=== PATIENT | female | born 1985 | race Caucasian/White ===

== ENCOUNTER → 2018-02-25 | Outpatient (CLI) | payer BC ==
[2018-02-25 18:26] LABS: Basophils % (A) 0 %; Eosinophils # (A) 0.2 k/uL (0-0.7); Eosinophils % (A) 2 %; HCT 40.9 % (34.0-46.0); HGB 12.7 gm/dL (11.4-16.0); Lymphocytes # (A) 1.9 k/uL (1.0-4.8); Lymphocytes % (A) 21 %; MCH 25.5 pg (25.0-35.0); MCHC 31.1 g/dL (31.0-37.0); MCV 82.1 fL (80.0-100.0); Mean Platelet Volume 8.1; Monocytes # (A) 0.4 k/uL (0-1.0); Monocytes % (A) 4 %; Neutrophils # (A) 6.3 k/uL (1.3-7.7); Neutrophils % (A) 70 %; Platelet Count 332 k/uL (150-450); RBC 4.98 m/uL (3.80-5.40); RDW 13.6 % (11.5-15.5); WBC 8.9 k/uL (3.8-10.6)
[2018-02-25 18:40] LABS: ALT 22 U/L (9-52); AST 25 U/L (14-36); Albumin 4.5 g/dL (3.5-5.0); Alkaline Phosphatase 51 U/L (38-126); Amylase 45 U/L (30-110); Anion Gap 15 mmol/L; Blood Urea Nitrogen 12 mg/dL (7-17); Calcium 9.7 mg/dL (8.4-10.2); Carbon Dioxide 27 mmol/L (22-30); Chloride 104 mmol/L (98-107); Cholesterol 157 mg/dL (<200); Glucose 82 mg/dL (74-99); HDL Cholesterol 31 mg/dL (40-60); LDL Cholesterol,Calculated 90 mg/dL (0-99); Lipase 55 U/L (23-300); Potassium 4.2 mmol/L (3.5-5.1); Sodium 146 mmol/L (137-145); Total Bilirubin 0.4 mg/dL (0.2-1.3); Total Protein 7.7 g/dL (6.3-8.2); Triglycerides 179 mg/dL (<150)
[2018-02-26 01:30] LABS: Iron Saturation 20.64 (12.00-45.00)
[2018-02-26 01:39] LABS: Vitamin D 25 Hydroxy 15.8 ng/mL (30.0-100.0)
== END | disposition home or self-care (01) ==
LOC: MMGSC 11:18
PROVIDERS: ATTEND Family Medicine
DX: Z00.00 Encounter for general adult medical examination without abnormal findings (principal); R53.83 Other fatigue; D50.9 Iron deficiency anemia, unspecified; R10.13 Epigastric pain
CPT/HCPCS: 36415; 80053; 80061; 82150; 82306; 82607; 82728; 83540; 83550; 83690; 84443; 85025

== ENCOUNTER 2021-01-21 01:49 | Inpatient (IN) | payer BC ==
[2021-01-21] MEDS ORDERED: LIDOCAINE 0.5% (PF) 5 MG/ML (50 ML SDV) SQ PRN (02:23)
[2021-01-21] MEDS ORDERED: CARBOPROST TROMETHAMINE 250 MCG/ML 1 ML AMP IM PRN (02:23)
[2021-01-21] MEDS ORDERED: METHYLERGONOVINE 0.2 MG/ML 1 ML AMP IM PRN (02:23)
[2021-01-21] MEDS ORDERED: TERBUTALINE 1 MG/ML VIAL SQ PRN (02:23)
[2021-01-21] MEDS ORDERED: OXYTOCIN 10 UNIT/ML 1 ML VIAL IM PRN (02:23)
[2021-01-21] MEDS: LACTATED RINGERS 1,000 ML IV SCH ×3 (03:03→21:08)
[2021-01-21 03:04] LABS: Glucose,Whole Blood 108 mg/dL (75-99)
[2021-01-21 03:29] LABS: Basophils % (A) 0 %; Eosinophils % (A) 0 %; HCT 33.5 % (34.0-46.0); HGB 11.1 gm/dL (11.4-16.0); Lymphocytes # (A) 0.9 k/uL (1.0-4.8); Lymphocytes % (A) 10 %; MCH 26.1 pg (25.0-35.0); MCHC 33.3 g/dL (31.0-37.0); MCV 78.4 fL (80.0-100.0); Mean Platelet Volume 8.2; Monocytes # (A) 0.5 k/uL (0-1.0); Monocytes % (A) 6 %; Neutrophils # (A) 6.8 k/uL (1.3-7.7); Neutrophils % (A) 83 %; Platelet Count 201 k/uL (150-450); RBC 4.27 m/uL (3.80-5.40); RDW 15.3 % (11.5-15.5); WBC 8.2 k/uL (3.8-10.6)
[2021-01-21] MEDS ORDERED: OXYTOCIN 30 UNITS/500 ML NS 30 UNIT in SALINE 1 500ML.BAG IV SCH (05:00)
--- NOTE | 2021-01-21 07:24 | P.HPOB ---
History of Present Illness H&P Date: 01/21/21 Chief Complaint: My water broke at 12:30 AM, positive covid testing yesterday. This is a 35-year-old white female 3 para 2001 EDC 01/22/2021 at 39-6/7 weeks' gestation. Patient presented to labor and delivery with a history of her water spontaneously breaking at 12:30 in the morning, clear fluid. Her history is significant for positive rapid screen covid testing positive yesterday. She has mild shortness of breath but otherwise appears asymptomatic. Fetus is been active throughout the past medical history is significant for seasonal ALLERGIES and benign heart murmur. Past surgical history dental surgery only. Current medications baby aspirin daily, vitamin daily. ALLERGIES none known. Family history significant for MS, diabetes, arthritis, thyroid issues, ALS. Reproductive history significant for vaginal deliveries 2, unremarkable. Social history patient is a schoolteacher loss dry for, she is , never been a smoker, denies alcohol or drug use. history is significant for blood type A+, rubella status immune. Pap smear, gonorrhea and chlamydia cultures, group B strep cultures hepatitis B surface antigen, HIV testing all negative. Three-hour GTT consistent with gestational diabetes. On exam patient is 5 foot 9 inches, 250 pounds, blood pressure 123/67 on admission, pulse ox 93%, pulse 114, respirations 18, temperature 99.0. General physical exam is within normal limits. Chest is clear in all perea. Extremities reveal no edema. Cervix is 3 cm dilated, 80% effaced, -2 station, vertex presentation. Clear fluid is noted on the perineal body. heart rate is consistent with reactive NST with a baseline in the 150s. Impression: 39-6/7 weeks intrauterine , recent positive covid 19 testing, active spontaneous labor. Pulse ox 97% on 2 L of nasal cannula O2. Signs otherwise reassuring. Plan: Oxytocin augmentation per hospital protocol. Close maternal and surveillance. Pulmonology consult has been requested. Continue O2 at 2 L nasal cannula for pulse ox less than 94%. Anticipate normal spontaneous vaginal delivery. Review of Systems Constitutional: Reports as per HPI Past Medical History Past Medical History: No Reported History Additional Past Medical History / Comment(s): Gestational diabetes History of Any Multi-Drug Resistant Organisms: None Reported Past Surgical History: No Surgical Hx Reported Additional Past Surgical History / Comment(s): [place] Tooth extraction Past Anesthesia/Blood Transfusion Reactions: No Reported Reaction Past Psychological History: No Psychological Hx Reported Smoking Status: Never smoker Past Alcohol Use History: None Reported Past Drug Use History: None Reported - Past Family History Mother Family Medical History: Diabetes Mellitus, Thyroid Disorder Additional Family Medical History / Comment(s): Arthritis, type II DM, MS Sister(s) Family Medical History: Thyroid Disorder Medications and Allergies Home Medications Medication Instructions Recorded Confirmed Type Pnv No.95/Ferrous Fum/Folic AC 1 each PO DAILY 07/31/20 01/21/21 History [ Multivitamin Tablet] guaiFENesin [Mucinex] 600 mg PO DAILY 01/21/21 01/21/21 History Allergies Allergy/AdvReac Type Severity Reaction Status Date / Time No Known Allergies Allergy Verified 01/21/21 01:58 Exam Vital Signs Temp Pulse Resp BP Pulse Ox 01/21/21 02:41 99.0 F 114 H 18 123/67 01/21/21 02:26 99.0 F 114 H 18 123/67 94 L Intake and Output 01/20/21 01/21/21 01/21/21 22:59 06:59 14:59 Other: # Voids 1 Weight 113.398 kg See dictation under HPI please Results Result Diagrams: 01/21/21 03:10 Abnormal Lab Results - Last 24 Hours (Table) 01/21/21 01/21/21 Range/Units 03:00 03:10 Hgb 11.1 L (11.4-16.0) gm/dL Hct 33.5 L (34.0-46.0) % MCV 78.4 L (80.0-100.0) fL Lymphocytes # 0.9 L (1.0-4.8) k/uL POC Glucose (mg/dL) 108 H (75-99) mg/dL Assessment and Plan Assessment: 39-6/7 weeks intrauterine , spontaneous amniorrhexis, early labor, positive covid 19 testing with slight hypoxemia and tachypnea on room air. Plan: Oxytocin per hospital protocol. Analgesic options reviewed. Continue nasal cannula oxygen for pulse ox less than 94%. Pulmonology consult. Anticipate normal spontaneous vaginal delivery.
[2021-01-21] MEDS ORDERED: ACETAMINOPHEN TAB 325 MG TAB PO PRN (08:35)
[2021-01-21] MEDS ORDERED: SIMETHICONE 80 MG CHEWABLE PO PRN (08:35)
[2021-01-21] MEDS ORDERED: LANOLIN CREAM 5 GM TUBE TOPICAL PRN (08:35)
[2021-01-21] MEDS ORDERED: diphenhydrAMINE 50 MG CAP PO PRN (08:35)
[2021-01-21] MEDS ORDERED: HYDROCORTISONE 2.5% RECTAL CREAM 30 GM TUBE RECTAL PRN (08:35)
[2021-01-21] MEDS ORDERED: diphenhydrAMINE 50 MG/ML 1 ML VIAL IVP PRN ×2 (08:35)
[2021-01-21] MEDS ORDERED: ZOLPIDEM 5 MG TAB PO PRN (08:35)
[2021-01-21] MEDS ORDERED: BENZOCAINE/MENTHOL SPRAY 1 GM/SPRAY AEROSOL TOPICAL PRN (08:35)
[2021-01-21] MEDS ORDERED: diphenhydrAMINE 25 MG CAP PO PRN (08:35)
--- NOTE | 2021-01-21 08:35 | P.PROBDLV ---
Vaginal Delivery Note - . Vaginal Delivery Note: This is a 35-year-old white female 3 para 2001 EDC 01/22/2021 at 39-6/7 weeks' gestation. Patient presented with spontaneous amniorrhexis, clear fluid. Fetus is been active throughout the . She did have positive Covid 19 testing yesterday. remarkable for gestational diabetes, blood sugar on admission 120. Please see admitting H&P for details. Oxytocin augmentation was started and titrated per hospital protocol. Patient declined medication for analgesia. She was judged to be 9 cm dilated by the nurse at the bedside, and then very quickly delivered a liveborn female infant precipitously at 0817 hours. There was a body cord 1. scores 9 and 9 at one and 5 minutes respectively. Placenta delivered spontaneously at 0819 hours. Placenta was inspected, noted to be intact with trivascular cord. At this time careful inspection of the cervix, vagina, perineum, periurethral, and perirectal areas revealed no lacerations and no defects. Fundus is firm and in the midline, symmetric and 18 week size upon completion of delivery. Infant weighs 8 lbs. 0 oz. or 3625 g. All sponge needle and enhancement counts are correct. Patient's pulse ox is now noted to be 97% on room air, nasal cannula oxygen will be discontinued and reinstituted with pulse ox less than 94%. Pulmonology consult has been obtained.
[2021-01-21] MEDS: IBUPROFEN 600 MG TAB PO SCH ×3 (09:11→21:08)
[2021-01-21] MEDS: SENNOSIDES-DOCUSATE SODIUM 1 EACH TAB PO SCH (09:12)
--- NOTE | 2021-01-21 11:27 | P.MSEPDOC ---
Presenting Problems - Arrival Data Date of Arrival on Unit: 01/21/21 Time of Arrival on Unit: : Mode of Transport: Wheelchair - Complaint OB-Reason for Admission/Chief Complaint: Rule Out SROM Comment: Patient presents to triage with SROM, states that she noted a clear fluid leaking after a coughing fit around 0030 this am. States the fluid is clear in color with some pink tinge. Patient is covid positive, was tested yesterday at [facility]. Patient's is also covid positive. Medical History - Information : 3 Para: 2 Term: 2 : 0 Abortions: Spontaneous or Elective: 0 Number of Living Children: 2 - Gestational Age Gestational Age by SARAH (wks/days): 39 Weeks and 6 Days - History Complications: GBS+ Comment: Patient has a heart shaped uterus Review of Systems - Review of Systems Constitutional: No problems Breast: No problems ENT: No problems Cardiovascular: No problems Respiratory: No problems Gastrointestinal: No problems Genitourinary: No problems Musculoskeletal: No problems Neurological: No problems Skin: No problems Vital Signs - Temperature Temperature: 98.9 F Temperature Source: Oral - Pulse Radial Pulse Rate: 77 Pulse Assessment Method: Automatic Cuff - Respirations Respiratory Rate: 18 Oxygen Delivery Method: Room Air Oxygen Flow Rate: 2 - Blood Pressure Sitting Blood Pressure: 101/50 Blood Pressure Mean: 67 Blood Pressure Source: Automatic Cuff Medical Screen Scoring (Pre) - Cervical Exam Dilation: 1-3 cm = 1 Membranes: Ruptured = 3 - Uterine Contractions Frequency: > 5 minutes apart = 1 Duration: > 40 seconds = 2 Intensity: N/A - Maternal Vital Signs Maternal Temperature: N/A Maternal Blood Pressure: N/A Signs of Preeclampsia: N/A Maternal Respirations: N/A - Maternal Trauma Maternal Trauma: N/A - Assessment - Baby A Baseline FHR: 150 Heart Rate - NICHD Category: Category I (Normal) = 0 NST: Reactive Position: N/A Station: N/A - Total Score - Baby A Total Score - Baby A: 7 - Total Score - Baby B Total Score - Baby B: 7 - Total Score - Baby C Total Score - Baby C: 7 - Level of Risk - Baby A Level of Risk - Baby A: Medium (6-9) - Level of Risk - Baby B Level of Risk - Baby B: Medium (6-9) - Level of Risk - Baby C Level of Risk - Baby C: Medium (6-9) Physician Notification (Pre) - Physician Notified Physician Notified Date: 01/21/21 Physician Notified Time: New Order Received: Yes - Notification Comment Comment: Orders given to admit patient for labor, if patient is not sally and or making cervical change by 0500 initate pitocin. Orders given to intiate 2L of o2 per nasal canula if pulse ox below 94%. Consult pulmonology. Call physician if and when needed Disposition - Disposition OB Disposition: Admit Transferred to:: [address] 1 I agree with the RN Medical Screening Exam: Yes Case reviewed; plan agreed upon as documented in EMR&OBIX.: Yes Diagnosis: LOUSE-BORNE TYPHUS
--- NOTE | 2021-01-21 16:45 | P.CNPUL ---
History of Present Illness Consult date: 01/21/21 Requesting physician: Evelin Colon Reason for consult: dyspnea, cough, other Chief complaint: Dyspnea cough, COVID 19 History of present illness: This is a 35-year-old white female patient who came into the hospital on 01/21/2021 at 0149 after her water broke at 39,5 weeks gestation. Patient had a positive rapid COVID test done yesterday. She had mild shortness of breath but otherwise appeared asymptomatic, had a dry mild cough. Her past medical history includes gestational diabetes, lifetime nonsmoker. No regular prescription medications other than vitamins and [id number] Mucinex. 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 Currently patient is on room air, pulse ox is 95-96%, she is afebrile, she is breathing comfortably, denies any cough, denies any chest discomfort, denies any dyspnea. She had a vaginal delivery of a 8 pound 0 ounce infant this morning who is doing well. At the time of our evaluation patient is resting comfortably in bed, we ordered a chest x-ray which is pending at this time. Recently the stable, patient remains on room air, vital signs have been stable, she had a mildly elevated temperature this morning after delivery, afebrile now. Today's labs have been reviewed, we will let cell count is 8.2, hemoglobin is 11.1, lymphocyte count is 0.9. Review of Systems All systems: negative Constitutional: Denies chills, Denies fever Eyes: denies blurred vision, denies pain Ears, nose, mouth and throat: Denies headache, Denies sore throat Cardiovascular: Denies chest pain, Denies shortness of breath Respiratory: Reports cough, Reports dyspnea Gastrointestinal: Denies abdominal pain, Denies diarrhea, Denies nausea, Denies vomiting Genitourinary: Denies dysuria, Denies hematuria Musculoskeletal: Denies myalgias Integumentary: Denies pruritus, Denies rash Neurological: Denies numbness, Denies weakness Psychiatric: Denies anxiety, Denies depression Endocrine: Denies fatigue, Denies weight change Past Medical History Past Medical History: No Reported History Additional Past Medical History / Comment(s): Gestational diabetes History of Any Multi-Drug Resistant Organisms: None Reported Past Surgical History: No Surgical Hx Reported Additional Past Surgical History / Comment(s): [place] Tooth extraction Past Anesthesia/Blood Transfusion Reactions: No Reported Reaction Past Psychological History: No Psychological Hx Reported Smoking Status: Never smoker Past Alcohol Use History: None Reported Past Drug Use History: None Reported - Past Family History Mother Family Medical History: Diabetes Mellitus, Thyroid Disorder Additional Family Medical History / Comment(s): Arthritis, type II DM, MS Sister(s) Family Medical History: Thyroid Disorder Medications and Allergies Home Medications Medication Instructions Recorded Confirmed Type Pnv No.95/Ferrous Fum/Folic AC 1 each PO DAILY 07/31/20 01/21/21 History [ Multivitamin Tablet] guaiFENesin [Mucinex] 600 mg PO DAILY 01/21/21 01/21/21 History Allergies Allergy/AdvReac Type Severity Reaction Status Date / Time No Known Allergies Allergy Verified 01/21/21 01:58 Physical Exam Vitals: Vital Signs Temp Pulse Resp BP Pulse Ox 01/21/21 15:46 97.5 F L 80 17 103/68 95 01/21/21 13:30 17 96 01/21/21 12:34 97.5 F L 78 18 106/70 98 01/21/21 11:27 98.9 F 77 18 101/50 01/21/21 10:30 77 18 101/50 01/21/21 10:00 98.9 F 69 18 98/53 01/21/21 09:30 79 16 100/57 01/21/21 09:15 82 16 105/55 01/21/21 09:03 88 17 103/65 01/21/21 08:45 81 16 100/63 01/21/21 08:30 98.9 F 82 17 104/60 96 01/21/21 02:41 99.0 F 114 H 18 123/67 01/21/21 02:26 99.0 F 114 H 18 123/67 94 L Intake and Output 01/21/21 01/21/21 01/21/21 06:59 14:59 22:59 Other: # Voids 1 1 Weight 113.398 kg GENERAL EXAM: Alert, very pleasant, 35-year-old white female, on room air, pulse ox is 95% comfortable in no apparent distress. HEAD: Normocephalic/atraumatic. EYES: Normal reaction of pupils, equal size. Conjunctiva pink, sclera white. NOSE: Clear with pink turbinates. THROAT: No erythema or exudates. NECK: No masses, no JVD, no thyroid enlargement, no adenopathy. CHEST: No chest wall deformity. Symmetrical expansion. LUNGS: Equal air entry with no crackles, wheeze, rhonchi or dullness. CVS: Regular rate and rhythm, normal S1 and S2, no gallops, no murmurs, no rubs ABDOMEN: Soft, nontender. No hepatosplenomegaly, normal bowel sounds, no guarding or rigidity. EXTREMITIES: No clubbing, no edema, no cyanosis, 2+ pulses and upper and lower extremities. MUSCULOSKELETAL: Muscle strength and tone normal. SPINE: No scoliosis or deformity SKIN: No rashes CENTRAL NERVOUS SYSTEM: Alert and oriented -3. No focal deficits, tone is normal in all 4 extremities. PSYCHIATRIC: Alert and oriented -3. Appropriate affect. Intact judgment and i nsight. Results - Laboratory Findings CBC and BMP: 01/21/21 03:10 Abnormal lab findings: Abnormal Labs 01/21/21 01/21/21 03:00 03:10 Hgb 11.1 L Hct 33.5 L MCV 78.4 L Lymphocytes # 0.9 L POC Glucose (mg/dL) 108 H Assessment and Plan Plan: Assessment: #1. Acute COVID 19 infection #2. Mild dyspnea related to the above, chest x-rays pending #3. 39-1/2 weeks gestation, and patient had a vaginal delivery this morning #4. Lifetime nonsmoker Plan: Patient is stable, had very mild dyspnea this morning, denies any pulmonary symptoms right now, no cough, she is breathing comfortably, she is on room air, we will obtain a chest x-ray, will obtain inflammatory markers CMP, continue monitoring for any changes in the breathing pattern, febrile pattern, or oxygenation. We'll continue to follow I performed a history & physical examination of the patient and discussed their management with my nurse practitioner, Betzaida Velasco. I reviewed the nurse practitioner's note and agree with the documented findings and plan of care. Lung sounds are positive for clear breath sounds.. The findings and the impression was discussed with the patient. I attest to the documentation by the nurse practitioner. Time with Patient: Greater than 30
--- NOTE | 2021-01-21 16:48 | XR ---
EXAMINATION TYPE: XR chest 1V portable DATE OF EXAM: 01/21/2021 COMPARISON: NONE HISTORY: Chest tightness and Covid positive. TECHNIQUE: Single frontal view of the chest is obtained. FINDINGS: There is moderate patchy opacities in the bilateral mid to lower lungs. No pleural effusio n, or pneumothorax seen. The cardiac silhouette size is within normal limits. The osseous structur es are intact. IMPRESSION: Bilateral infiltrates.
[2021-01-21 17:24] LABS: ALT 11 U/L (4-34); AST 29 U/L (14-36); African American GFR (CKD) >90 (>60 ml/min/1.73 sqM); Albumin 3.1 g/dL (3.5-5.0); Alkaline Phosphatase 115 U/L (38-126); Anion Gap 10 mmol/L; Blood Urea Nitrogen 11 mg/dL (7-17); Calcium 8.7 mg/dL (8.4-10.2); Carbon Dioxide 21 mmol/L (22-30); Chloride 103 mmol/L (98-107); Glucose 99 mg/dL (74-99); LDH 546 U/L (313-618); Non-African American GFR(CKD) >90 (>60 ml/min/1.73 sqM); Potassium 4.3 mmol/L (3.5-5.1); Sodium 134 mmol/L (137-145); Total Bilirubin 0.4 mg/dL (0.2-1.3)
[2021-01-21 17:35] LABS: C Reactive Protein 127.7 mg/L (<10.0)
[2021-01-21] MEDS: SENNA LEAF EXTRACT SYRUP 528 MG/15 ML CUP PO SCH (21:08)
[2021-01-22] MEDS: IBUPROFEN 600 MG TAB PO SCH ×2 (04:13→10:12)
[2021-01-22 07:48] VITALS: BP 99/63; PULSE 93; RESP 15; TEMP 97.2
--- NOTE | 2021-01-22 07:52 | P.DS ---
Providers Date of admission: 01/21/21 02:17 Expected date of discharge: 01/22/21 Attending physician: Evelin Colon Consults: 01/21/21 03:19 Consult Physician Urgent Consulting Provider: Negro Segura Consult Reason/Comments: Pt is and in labor, COVID positive as of 01/20/21 Do you want consulting provider notified?: Yes Primary care physician: Stated None Hospital Course: This is a 35-year-old white female 3 para 2001 EDC 01/22/2021 who presented at 39-6/7 weeks with spontaneous amniorrhexis at home, clear fluid. Of note is that the patient did test positive for co-vid 19 the day prior to admission. is remarkable for gestational diabetes, well controlled with diet. Blood type A+. Rubella status immune. Please see my dictated history and physical for details. Oxytocin augmentation was started and patient very quickly delivered a liveborn female infant with scores of 9 and 9 at one and 5 minutes respectively. She weighed 3625 g or 8 lbs. 0 oz. There were no lacerations or defects. Estimated blood loss 450 mL's. Please see dictated delivery note for details. Pulmonary consult was obtained. From the respiratory perspective the patient is doing well. Her vital signs are stable and she is afebrile. Respiratory rate ranging from 16-20 this morning. She has remained afebrile. Chest x-ray has been performed and is negative. Patient's extremities are negative for edema, fundus is firm and in the midline, symmetric and 18 week size. Minimal lochia rubra. Pain well controlled. Patient is judged to be in good condition for discharge home. She will follow-up in the office with me in 6 weeks. 2 weeks of home foreign teen are recommended. She will continue taking her vitamin daily and use extra strength Tylenol as needed for pain. I've reviewed with her contraceptive options and we will discuss this further in the office. Patient will call with any fevers shakes or chills, foul smelling or copious lochia, with the passage of large blood clots, with any pain not alleviated by [id number] acetaminophen, or indeed with any concerns. 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 Assessment: Doing Well day #1 Patient Condition at Discharge: Good Plan - Discharge Summary Discharge Rx Participant: No New Discharge Prescriptions: No Action Pnv No.95/Ferrous Fum/Folic AC [ Multivitamin Tablet] 1 each PO DAILY guaiFENesin [Mucinex] 600 mg PO DAILY Discharge Medication List Pnv No.95/Ferrous Fum/Folic AC [ Multivitamin Tablet] 1 each PO DAILY 07/31/20 [History] guaiFENesin [Mucinex] 600 mg PO DAILY 01/21/21 [History] Follow up Appointment(s)/Referral(s): Evelin Colon MD [STAFF PHYSICIAN] - 6 Weeks Discharge Disposition: HOME SELF-CARE
[2021-01-22] MEDS: SENNOSIDES-DOCUSATE SODIUM 1 EACH TAB PO SCH (10:12)
[2021-01-22] MEDS: SENNA LEAF EXTRACT SYRUP 528 MG/15 ML CUP PO SCH (10:12)
== END 2021-01-22 11:31 | disposition home or self-care (01) | DRG 805 ==
LOC: FBPOP 01:49 → 4FBP 02:17 → EDBD 02:17
PROVIDERS: ADMIT Obstetrics & Gynecology; ATTEND Obstetrics & Gynecology
PROC: 10E0XZZ Delivery of Products of Conception, External Approach (ICD-10-PCS; principal; 2021-01-21)
DX: O98.52 Other viral diseases complicating childbirth (principal); U07.1 COVID-19; Z37.0 Single live birth; Z83.3 Family history of diabetes mellitus; Z79.82 Long term (current) use of aspirin; Z3A.39 39 weeks gestation of pregnancy; O24.429 Gestational diabetes mellitus in childbirth, unspecified control; R09.02 Hypoxemia; O99.52 Diseases of the respiratory system complicating childbirth; Z82.0 Family history of epilepsy and other diseases of the nervous system
CPT/HCPCS: 59025; 71045; 80053; 83615; 84112; 85025; 85379; 86140; 86850; 86900; 86901; 99213

== ENCOUNTER 2021-01-23 17:05 | Inpatient (IN) | payer BC ==
[2021-01-23] MEDS ORDERED: ACETAMINOPHEN TAB 500 MG TAB PO STA (19:18)
--- NOTE | 2021-01-23 19:31 | ED ---
General Adult HPI - General Chief complaint: Fever Stated complaint: SOB Time Seen by Provider: 01/23/21 19:18 Source: patient, RN notes reviewed, old records reviewed Mode of arrival: wheelchair Limitations: no limitations - History of Present Illness Initial comments: 35-year-old female recently diagnosed with coronavirus presenting for evaluation of cough and dyspnea. Patient was seen by primary care physician today noted to have a bilateral pneumonia on x-ray. She has had 5 days of increased cough and dyspnea as well as fever. She is 3 days . Gestation was complicated by diabetes no other complications. - Related Data Home Medications Medication Instructions Recorded Confirmed Pnv No.95/Ferrous Fum/Folic AC 1 each PO DAILY 07/31/20 01/21/21 [ Multivitamin Tablet] guaiFENesin [Mucinex] 600 mg PO DAILY 01/21/21 01/21/21 Allergies Allergy/AdvReac Type Severity Reaction Status Date / Time No Known Allergies Allergy Verified 01/23/21 19:09 Review of Systems ROS Statement: Those systems with pertinent positive or pertinent negative responses have been documented in the HPI. ROS Other: All systems not noted in ROS Statement are negative. Past Medical History Past Medical History: Pneumonia Additional Past Medical History / Comment(s): Gestational diabetes. COVID History of Any Multi-Drug Resistant Organisms: None Reported Past Surgical History: No Surgical Hx Reported Additional Past Surgical History / Comment(s): [place] Tooth extraction Past Anesthesia/Blood Transfusion Reactions: No Reported Reaction Past Psychological History: No Psychological Hx Reported Smoking Status: Never smoker Past Alcohol Use History: None Reported Past Drug Use History: None Reported - Past Family History Mother Family Medical History: Diabetes Mellitus, Thyroid Disorder Additional Family Medical History / Comment(s): Arthritis, type II DM, MS Sister(s) Family Medical History: Thyroid Disorder General Exam Limitations: no limitations General appearance: alert, in no apparent distress Head exam: Present: atraumatic, normocephalic Eye exam: Present: normal appearance, PERRL ENT exam: Present: normal exam Neck exam: Present: normal inspection. Absent: tenderness, meningismus Respiratory exam: Present: wheezes, rhonchi, decreased breath sounds Cardiovascular Exam: Present: normal rhythm, tachycardia GI/Abdominal exam: Present: soft. Absent: distended, tenderness, guarding Extremities exam: Present: normal inspection, normal capillary refill. Absent: pedal edema Neurological exam: Present: alert, oriented X3, CN II-XII intact. Absent: motor sensory deficit Psychiatric exam: Present: normal affect, normal mood Skin exam: Present: warm, dry, intact. Absent: cyanosis, diaphoretic Course Vital Signs 01/23/21 01/23/21 01/23/21 19:05 20:56 21:47 Temperature 101.3 F H 99.0 F Pulse Rate 102 H 99 Respiratory 22 20 Rate Blood Pressure 106/70 112/63 O2 Sat by Pulse 93 L 98 87 L Oximetry EKG Findings - EKG Comments: EKG Findings:: EKG: Normal sinus rhythm, no ST segment elevation, rate of 89, WA interval 146, QRS duration 92, QTC 438, Medical Decision Making - Medical Decision Making 35-year-old female 3 days vaginal delivery with recent diagnosis of coronavirus presenting with increased cough and dyspnea. Patient is tachypneic, hypoxic upon arrival. Chest x-rays repeated, shows a worsening bilateral infiltrate consistent with coronavirus pneumonia. She has a normal CBC, d-dimer 1.19. Minimal lactic acid of 2.1. LDH and CRP are both elevated. CT angiography has been ordered, these results are pending. I did discuss case with Dr. Horta who will admit, and follow-up with CT imaging. Pulmonology has been placed on consult. - Lab Data Result diagrams: 01/23/21 20:35 01/23/21 20:35 Lab Results 01/23/21 01/23/21 01/23/21 Range/Units 20:35 20:35 20:35 WBC 6.3 (3.8-10.6) k/uL RBC 4.91 (3.80-5.40) m/uL Hgb 12.7 (11.4-16.0) gm/dL Hct 39.3 (34.0-46.0) % MCV 80.1 (80.0-100.0) fL MCH 25.9 (25.0-35.0) pg MCHC 32.3 (31.0-37.0) g/dL RDW 15.2 (11.5-15.5) % Plt Count 234 (150-450) k/uL MPV 7.4 Neutrophils % 79 % Lymphocytes % 15 % Monocytes % 4 % Eosinophils % 0 % Basophils % 0 % Neutrophils # 5.0 (1.3-7.7) k/uL Lymphocytes # 1.0 (1.0-4.8) k/uL Monocytes # 0.3 (0-1.0) k/uL Eosinophils # 0.0 (0-0.7) k/uL Basophils # 0.0 (0-0.2) k/uL PT 9.3 (9.0-12.0) sec INR 0.8 (<1.2) APTT 31.8 H (22.0-30.0) sec D-Dimer 1.19 H (<0.60) mg/L FEU Sodium 135 L (137-145) mmol/L Potassium 4.2 (3.5-5.1) mmol/L Chloride 102 (98-107) mmol/L Carbon Dioxide 23 (22-30) mmol/L Anion Gap 10 mmol/L BUN 9 (7-17) mg/dL Creatinine 0.56 (0.52-1.04) mg/dL Est GFR (CKD-EPI)AfAm >90 (>60 ml/min/1.73 sqM) Est GFR (CKD-EPI)NonAf >90 (>60 ml/min/1.73 sqM) Glucose 95 (74-99) mg/dL Plasma Lactic Acid Scar (0.7-2.0) mmol/L Calcium 8.5 (8.4-10.2) mg/dL Magnesium 2.0 (1.6-2.3) mg/dL Total Bilirubin 0.4 (0.2-1.3) mg/dL AST 48 H (14-36) U/L ALT 17 (4-34) U/L Alkaline Phosphatase 113 (38-126) U/L Lactate Dehydrogenase 810 H (313-618) U/L C-Reactive Protein 68.4 H (<10.0) mg/L Total Protein 7.1 (6.3-8.2) g/dL Albumin 3.7 (3.5-5.0) g/dL 01/23/21 Range/Units 20:35 WBC (3.8-10.6) k/uL RBC (3.80-5.40) m/uL Hgb (11.4-16.0) gm/dL Hct (34.0-46.0) % MCV (80.0-100.0) fL MCH (25.0-35.0) pg MCHC (31.0-37.0) g/dL RDW (11.5-15.5) % Plt Count (150-450) k/uL MPV Neutrophils % % Lymphocytes % % Monocytes % % Eosinophils % % Basophils % % Neutrophils # (1.3-7.7) k/uL Lymphocytes # (1.0-4.8) k/uL Monocytes # (0-1.0) k/uL Eosinophils # (0-0.7) k/uL Basophils # (0-0.2) k/uL PT (9.0-12.0) sec INR (<1.2) APTT (22.0-30.0) sec D-Dimer (<0.60) mg/L FEU Sodium (137-145) mmol/L Potassium (3.5-5.1) mmol/L Chloride (98-107) mmol/L Carbon Dioxide (22-30) mmol/L Anion Gap mmol/L BUN (7-17) mg/dL Creatinine (0.52-1.04) mg/dL Est GFR (CKD-EPI)AfAm (>60 ml/min/1.73 sqM) Est GFR (CKD-EPI)NonAf (>60 ml/min/1.73 sqM) Glucose (74-99) mg/dL Plasma Lactic Acid Scar 2.1 H* (0.7-2.0) mmol/L Calcium (8.4-10.2) mg/dL Magnesium (1.6-2.3) mg/dL Total Bilirubin (0.2-1.3) mg/dL AST (14-36) U/L ALT (4-34) U/L Alkaline Phosphatase (38-126) U/L Lactate Dehydrogenase (313-618) U/L C-Reactive Protein (<10.0) mg/L Total Protein (6.3-8.2) g/dL Albumin (3.5-5.0) g/dL Critical Care Time Critical Care Time: Yes Disposition Clinical Impression: Pneumonia due to COVID-19 virus, Hypoxia Disposition: ADMITTED IP TO THIS HOSP Condition: Stable Is patient prescribed a controlled substance at d/c from ED?: No Referrals: Thea Noel MD [Primary Care Provider] - 1-2 days Decision to Admit Reason: Admit from EC Decision Date: 01/23/21 Decision Time: 21:59
--- NOTE | 2021-01-23 19:55 | XR ---
EXAMINATION TYPE: XR chest 1V portable DATE OF EXAM: 01/23/2021 COMPARISON: 01/21/2021. HISTORY: Fever and cough. TECHNIQUE: Single frontal view of the chest is obtained. FINDINGS: There are increased moderate perihilar and bibasilar patchy opacities. No pleural effusion , or pneumothorax seen. The cardiac silhouette size is within normal limits. The osseous structure s are intact. IMPRESSION: Worsening airspace disease.
[2021-01-23 20:50] LABS: Basophils % (A) 0 %; Eosinophils % (A) 0 %; HCT 39.3 % (34.0-46.0); HGB 12.7 gm/dL (11.4-16.0); Lymphocytes % (A) 15 %; MCH 25.9 pg (25.0-35.0); MCHC 32.3 g/dL (31.0-37.0); MCV 80.1 fL (80.0-100.0); Mean Platelet Volume 7.4; Monocytes # (A) 0.3 k/uL (0-1.0); Monocytes % (A) 4 %; Neutrophils % (A) 79 %; Platelet Count 234 k/uL (150-450); RBC 4.91 m/uL (3.80-5.40); RDW 15.2 % (11.5-15.5); WBC 6.3 k/uL (3.8-10.6)
[2021-01-23] MEDS: SODIUM CHLORIDE 0.9% 1,000 ML IV SCH (20:50)
[2021-01-23 21:03] LABS: INR 0.8 (<1.2); Partial Thromboplastin Time 31.8 sec (22.0-30.0); Prothrombin Time 9.3 sec (9.0-12.0)
[2021-01-23 21:06] LABS: ALT 17 U/L (4-34); AST 48 U/L (14-36); African American GFR (CKD) >90 (>60 ml/min/1.73 sqM); Albumin 3.7 g/dL (3.5-5.0); Alkaline Phosphatase 113 U/L (38-126); Anion Gap 10 mmol/L; Blood Urea Nitrogen 9 mg/dL (7-17); C Reactive Protein 68.4 mg/L (<10.0); Calcium 8.5 mg/dL (8.4-10.2); Carbon Dioxide 23 mmol/L (22-30); Chloride 102 mmol/L (98-107); Glucose 95 mg/dL (74-99); LDH 810 U/L (313-618); Non-African American GFR(CKD) >90 (>60 ml/min/1.73 sqM); Potassium 4.2 mmol/L (3.5-5.1); Sodium 135 mmol/L (137-145); Total Bilirubin 0.4 mg/dL (0.2-1.3); Total Protein 7.1 g/dL (6.3-8.2)
[2021-01-23] MEDS ORDERED: DEXAMETHASONE SOD PHOSPHATE 10 MG/ML 1 ML VIAL IV STA (21:11)
[2021-01-23 21:19] LABS: D-Dimer 1.19 mg/L FEU (<0.60)
[2021-01-23] MEDS ORDERED: NALOXONE 0.4 MG/ML 1 ML VIAL IV PRN (21:55)
[2021-01-23] MEDS ORDERED: ACETAMINOPHEN TAB 325 MG TAB PO PRN (21:55)
--- NOTE | 2021-01-23 22:37 | CT ---
EXAMINATION TYPE: CT angio chest DATE OF EXAM: 01/23/2021 COMPARISON: None HISTORY: SOB, elevated d-dimer, +covid CT DLP: 455.5 mGycm Automated exposure control for dose reduction was used. CONTRAST: Performed with IV Contrast, patient injected with 100 mL of Isovue 370. There are 3-D post processed images. There are some mediastinal and bronchial lymph nodes that measure up to 1.5 cm. Thoracic aorta is int act. There is no aneurysm or dissection. Heart size is normal. There is no pericardial effusion. There is patchy interstitial and airspace infiltrates in both lungs. This involves upper and lower lo bes. There is no evidence of filling defect in the pulmonary arteries. Thoracic spine is intact. There is no compression fracture. I see no bony destructive process. Upper abdominal soft tissues appear intac t. IMPRESSION: No evidence of pulmonary embolism. Bilateral patchy upper and lower lobe pneumonia.
--- NOTE | 2021-01-23 23:46 | P.HPIM ---
History of Present Illness H&P Date: 01/23/21 Chief Complaint: Increased shortness of breath 35-year-old female with gestational diabetes. Patient is one week post , she was diagnosed with Covid on January 21. She had symptoms for about a week prior to that of feeling malaise tired diffuse body aches and low-grade fevers, however she was in her third trimester expecting delivery any time and thought all the symptoms are related to her advanced stage of . On January 21 she got tested for Covid and was p ositive same day she had a coughing fit resulted in amniotic fluid leakage realizing that she should go to the hospital she had normal vaginal delivery uneventful the baby was staying in the NICU due to difficulties maintaining her temperature however she is currently doing well and feeding well still at the hospital expecting discharging couple days she tested negative to Covid Patient was evaluated by pulmonary at that time she was doing well not requiring any oxygen and was released from the hospital. Today she is coming back due to increased work of breathing she is having exertional dyspnea otherwise denies any chest pain denies any leg swelling denies any calf tenderness she still reporting diffuse body aches and low-grade fevers and that food doesn't taste good. In the ED she was reevaluated chest x-rays are showing infiltrates worse compared to before. Her blood work showed elevated d-dimer and CT angios of the chest showed no acute PE However she was hypoxic in the ED on room air for which she was started on some supplemental oxygen she is currently sitting comfortable at the edge of the bed but reports that she has to walk she'll feel short of breath She denies any bleeding, denies any history of blood clots, denies any nausea or vomiting or abdominal pain. However she does report some loose stool since delivery which she thought again it's related to her delivery. Denies any urinary symptoms denies any rashes Review of Systems Pertinent positives as noted in HPI. All other systems were reviewed and are negative Past Medical History Past Medical History: Pneumonia Additional Past Medical History / Comment(s): Gestational diabetes. COVID History of Any Multi-Drug Resistant Organisms: None Reported Past Surgical History: No Surgical Hx Reported Additional Past Surgical History / Comment(s): [place] Tooth extraction Past Anesthesia/Blood Transfusion Reactions: No Reported Reaction Past Psychological History: No Psychological Hx Reported Smoking Status: Never smoker Past Alcohol Use History: None Reported Past Drug Use History: None Reported - Past Family History Mother Family Medical History: Diabetes Mellitus, Thyroid Disorder Additional Family Medical History / Comment(s): Arthritis, type II DM, MS Sister(s) Family Medical History: Thyroid Disorder Medications and Allergies Home Medications Medication Instructions Recorded Confirmed Type Pnv No.95/Ferrous Fum/Folic AC 1 tab PO DAILY 07/31/20 01/23/21 History [ Multivitamin Tablet] Allergies Allergy/AdvReac Type Severity Reaction Status Date / Time No Known Allergies Allergy Verified 01/23/21 22:37 Physical Exam Vitals: Vital Signs Temp Pulse Resp BP Pulse Ox 01/23/21 21:47 99.0 F 87 L 01/23/21 20:56 99 20 112/63 98 01/23/21 19:05 101.3 F H 102 H 22 106/70 93 L Intake and Output 01/23/21 01/23/21 01/23/21 06:59 14:59 22:59 Other: Weight 113.398 kg Constitutional: No acute distress, conversant, pleasant Eyes: Anicteric sclerae, moist conjunctiva, Pupils equal round reactive to light ENMT: NC/AT Oropharynx clear, no erythema, or exudates Neck: Supple, FROM, no masses, or JVD No carotid bruits No thyromegaly Lungs: Clear to auscultation Clear to percussion Normal respiratory effort, no accessory muscle use Cardiovascular: Heart regular in rate and rhythm, No murmurs, gallops, or rubs No peripheral edema Abdominal: Soft Nontender, no guarding, rebound or rigidity Abdomen moving with respiration Normoactive bowel sounds No hepatomegaly, No splenomegaly No palpable mass No abdominal wall hernia noted Skin: Normal temperature, tone, texture, turgor No induration No subcutaneous nodules No rash, lesions No ulcers Extremities: No digital cyanosis No clubbing Pedal pulses intact and symmetrical Radial pulses intact and symmetrical No calf tenderness Psychiatric: Alert and oriented to person, place and time Appropriate affect fair judgement Neuro Muscles Strength 5/5 in all 4 extremities Sensation to light touch grossly present throughout Cranial nerves II-XII grossly intact No focal sensory deficits Lymphatics: no palpable cervical or supraclavicular , or inguinal lymph nodes Results CBC & Chem 7: 01/23/21 20:35 01/23/21 20:35 Labs: Abnormal Lab Results - Last 24 Hours (Table) 01/23/21 01/23/21 01/23/21 Range/Units 20:35 20:35 20:35 APTT 31.8 H (22.0-30.0) sec D-Dimer 1.19 H (<0.60) mg/L FEU Sodium 135 L (137-145) mmol/L Plasma Lactic Acid Scar 2.1 H* (0.7-2.0) mmol/L AST 48 H (14-36) U/L Lactate Dehydrogenase 810 H (313-618) U/L C-Reactive Protein 68.4 H (<10.0) mg/L Assessment and Plan Assessment: Acute hypoxic rested failure Covid pneumonitis Plan Supportive care Supplemental oxygen as needed Follow-up chest x-ray as needed, d-dimer, ferritin, LDH, PT/INR, CBC, Patient started on Decadron Pulmonary consult Contact and droplet precautions Gentle IV fluid hydration with normal saline History of gestational diabetes, we'll place the patient on insulin sliding scale if needed Patient is status 1 week . After an uneventful vaginal delivery CODE STATUS: Full code DVT prophylaxis: Lovenox daily Discussed with: Patient, ER, RN Anticipated length of stay more than [address]: Home A total of 75 minutes was spent on the care of this complex patient more than 50% of the time was spent in counseling and care coordination.
[2021-01-24 06:29] LABS: Ferritin 58.2 ng/mL (10.0-291.0)
[2021-01-24 07:26] LABS: Glucose,Whole Blood 127 mg/dL (75-99)
[2021-01-24] MEDS: INSULIN ASPART (NovoLOG) 100 UNIT/ML VIAL SQ SCH ×4 (08:10→22:01)
[2021-01-24] MEDS: dexAMETHasone 2 MG TAB PO SCH (08:35)
[2021-01-24] MEDS: ENOXAPARIN 40 MG/0.4 ML SYRINGE SQ SCH (08:35)
--- NOTE | 2021-01-24 09:43 | P.PN ---
Subjective Progress Note Date: 01/24/21 Patient is doing fairly well today. Shortness of breath is not improved compared to yesterday. Patient is still getting winded with minimal exertion. She is currently on 2 L of oxygen via nasal cannula to maintain O2 sats greater than 90%. Objective - Vital Signs Vital signs: Vital Signs Temp 97.6 F 01/24/21 07:10 Pulse 69 01/24/21 07:10 Resp 18 01/24/21 07:10 BP 94/65 01/24/21 07:10 Pulse Ox 92 L 01/24/21 07:10 Intake & Output 01/23/21 01/24/21 01/24/21 18:59 06:59 18:59 Weight 113.398 kg Other: # Voids 1 3 - Exam General: The patient is awake and alert, in no distress Eye: there is normal conjunctiva bilaterally. Neck: The neck is supple, there is no JVD. Cardiovascular: Normal S1-S2, no S3-S4, no murmurs. Respiratory: Lungs clear to auscultation bilaterally Gastrointestinal: Abdomen is soft, nontender Musculoskeletal: There is no pedal edema. Neurological:. Speech is normal. Skin: Skin is warm and dry - Labs CBC & Chem 7: 01/23/21 20:35 01/23/21 20:35 Labs: Abnormal Lab Results - Last 24 Hours (Table) 01/23/21 01/23/21 01/23/21 Range/Units 20:35 20:35 20:35 APTT 31.8 H (22.0-30.0) sec D-Dimer 1.19 H (<0.60) mg/L FEU Sodium 135 L (137-145) mmol/L POC Glucose (mg/dL) (75-99) mg/dL Plasma Lactic Acid Scar 2.1 H* (0.7-2.0) mmol/L AST 48 H (14-36) U/L Lactate Dehydrogenase 810 H (313-618) U/L C-Reactive Protein 68.4 H (<10.0) mg/L 01/23/21 01/24/21 Range/Units 23:27 07:24 APTT (22.0-30.0) sec D-Dimer (<0.60) mg/L FEU Sodium (137-145) mmol/L POC Glucose (mg/dL) 127 H (75-99) mg/dL Plasma Lactic Acid Scar 0.6 L (0.7-2.0) mmol/L AST (14-36) U/L Lactate Dehydrogenase (313-618) U/L C-Reactive Protein (<10.0) mg/L Assessment and Plan Assessment: This is a 35-year-old female that presented to the emergency room with worsening shortness of breath and cough. Patient was recently diagnosed with COVID-19 on January 21 and her symptoms as being getting worse. She was evaluated in the ER and was found to have O2 sats of 87% on room air. She is currently admitted to the hospital for further management of her medical problems noted below. 1. COVID-19 pneumonia: Continue supportive care. Vitamin C, vitamin D, zinc, and melatonin. Pulmonary consulted for further evaluation. Started on Decadron 6 mg daily day #2 2. Acute hypoxic respiratory failure: Wean off O2 as tolerated for O2 sats greater than 90% 3. Severe sepsis without septic shock: Improved with aggressive IV fluid hydration. Lactic acid back to normal. Blood cultures pending 4. Elevated d-dimer: CT angiogram in the ED with no evidence of PE 5. One week 6. DVT prophylaxis with subcu Lovenox. History of gestational diabetes Today, I reviewed her medication list and lab work results. Discontinue IV fluid. Continue supportive care. Appreciate mgmt consultant's recommendations.
--- NOTE | 2021-01-24 11:10 | P.CNPUL ---
History of Present Illness Consult date: 01/24/21 Requesting physician: Quentin Horta Reason for consult: dyspnea, abnormal CXR/CT Chief complaint: Shortness of breath, cough, congestion History of present illness: This is a very pleasant 35-year-old female patient who has a history of gestational diabetes. On 01/21/2021 she had a vaginal delivery of a healthy baby girl. She was seen and evaluated that day as she had tested positive for CoVID during a rapid screening. Her symptoms were quite mild and she was subsequently discharged the next day on 01/22/2021. She returned to the emergency room last evening with increasing shortness of breath, cough and fever. T-max 101.[address] angiogram ruled out pulmonary embolism. There is noted bilateral patchy upper and lower lobe pneumonia. Consistent with CoVID 19 infection. White count 6.3. Hematoma 12.7. D-dimer 1.19. Sodium 135. Potassium 4.2. Creatinine 0.56. AST 48. ALT 17. LDH 810. C-reactive protein 68. She is seen today in consultation on the regular medical floor. She's presently sitting up in bed. Awake and alert in no acute distress. She has a dry nonproductive cough. Currently afebrile. Eating O2 saturations in the low 90s on 2 L/m per nasal cannula. Lowest saturation of 87%. He has been initiated on vitamin supplements, dexamethasone, Lovenox, melatonin. Review of Systems REVIEW OF SYSTEMS: CONSTITUTIONAL: Fever. Generalized weakness. Recent vaginal delivery on 01/21/2021 EYES: Denies change in vision. EARS, NOSE, MOUTH, THROAT: Denies headaches, denies sore throat. CARDIOVASCULAR: Denies chest pain, palpitations or syncopal episodes. RESPIRATORY: Positive for shortness of breath, cough, congestion no hemoptysis. GASTROINTESTINAL: Denies change in appetite, denies abdominal pain GENITOURINARY: Denies hematuria, denies infections. MUSKULOSKELETAL: Denies pain, denies swelling. INTEGUMENTARY: Denies rash, denies eczema. NEUROLOGICAL: Denies recent memory loss, no recent seizure activity. PSYCHIATRIC: Denies anxiety, denies depression. HEMATOLOGIC/LYMPHATIC: Denies anemia, denies enlarged lymph nodes. . Past Medical History Past Medical History: Pneumonia Additional Past Medical History / Comment(s): Gestational diabetes. COVID History of Any Multi-Drug Resistant Organisms: None Reported Past Surgical History: No Surgical Hx Reported Additional Past Surgical History / Comment(s): [place] Tooth extraction Past Anesthesia/Blood Transfusion Reactions: No Reported Reaction Past Psychological History: No Psychological Hx Reported Smoking Status: Never smoker Past Alcohol Use History: None Reported Past Drug Use History: None Reported - Past Family History Mother Family Medical History: Diabetes Mellitus, Thyroid Disorder Additional Family Medical History / Comment(s): Arthritis, type II DM, MS Sister(s) Family Medical History: Thyroid Disorder Medications and Allergies Home Medications Medication Instructions Recorded Confirmed Type Pnv No.95/Ferrous Fum/Folic AC 1 tab PO DAILY 07/31/20 01/23/21 History [ Multivitamin Tablet] Allergies Allergy/AdvReac Type Severity Reaction Status Date / Time No Known Allergies Allergy Verified 01/23/21 22:37 Physical Exam Vitals: Vital Signs Temp Pulse Pulse Resp BP BP BP 01/24/21 07:10 97.6 F 69 18 94/65 01/24/21 02:10 63 16 01/24/21 01:00 97.8 F 63 16 100/64 01/24/21 00:00 79 18 131/72 01/23/21 22:38 86 18 96/61 01/23/21 21:47 99.0 F 01/23/21 20:56 99 20 112/63 01/23/21 19:05 101.3 F H 102 H 22 106/70 Pulse Ox 01/24/21 07:10 92 L 01/24/21 02:10 01/24/21 01:00 2 L 01/24/21 00:00 97 01/23/21 22:38 96 01/23/21 21:47 87 L 01/23/21 20:56 98 01/23/21 19:05 93 L Intake and Output 01/23/21 01/24/21 01/24/21 22:59 06:59 14:59 Other: # Voids 1 3 Weight 113.398 kg 113.398 kg GENERAL EXAM: Alert, active, very pleasant 35-year-old female patient, on 2 L nasal cannula, comfortable in no apparent distress. HEAD: Normocephalic. EYES: Normal reaction of pupils, equal size. NOSE: Clear with pink turbinates. THROAT: No erythema or exudates. NECK: No masses, no JVD. CHEST: No chest wall deformity. LUNGS: Equal air entry with coarse crackles in the posterior bases. CVS: S1 and S2 normal with no audible murmur, regular rhythm. ABDOMEN: Soft. No hepatosplenomegaly, normal bowel sounds, no guarding or rigidity. SPINE: No scoliosis or deformity SKIN: No rashes CENTRAL NERVOUS SYSTEM: No focal deficits, tone is normal in all 4 extremities. EXTREMITIES: There is no peripheral edema. No clubbing, no cyanosis. Peripheral pulses are intact. Results - Laboratory Findings CBC and BMP: 01/23/21 20:35 01/23/21 20:35 PT/INR, D-dimer PT 9.3 sec (9.0-12.0) 01/23/21 20:35 INR 0.8 (<1.2) 01/23/21 20:35 D-Dimer 1.19 mg/L FEU (<0.60) H 01/23/21 20:35 Abnormal lab findings: Abnormal Labs 01/23/21 01/23/21 01/23/21 20:35 20:35 20:35 APTT 31.8 H D-Dimer 1.19 H Sodium 135 L POC Glucose (mg/dL) Plasma Lactic Acid Scar 2.1 H* AST 48 H Lactate Dehydrogenase 810 H C-Reactive Protein 68.4 H 01/23/21 01/24/21 23:27 07:24 APTT D-Dimer Sodium POC Glucose (mg/dL) 127 H Plasma Lactic Acid Scar 0.6 L AST Lactate Dehydrogenase C-Reactive Protein - Diagnostic Findings Chest x-ray: image reviewed CT scan - chest: image reviewed Assessment and Plan Assessment: 1 Acute hypoxemic respiratory failure secondary to acute CoVID 19 pneumonia. Positive test 01/20/2021 at [email or web address]. Initiated on Remdesivir today. 2 Recent vaginal delivery on 01/21/2021. Baby girl being monitored here at the hospital 3 History of gestational diabetes Plan: The patient was seen and evaluated by Dr. Braun Chest x-ray, CAT scan, labs reviewed Continue Lovenox, dexamethasone, vitamin supplements Initiate Remdesivir Titrate the FiO2 as tolerated Repeat chest x-ray and inflammatory markers in a.m. We'll continue to follow and make further recommendations based on her clinical status I, the cosigning physician, performed a history & physical examination of the patient. Lungs sounds with coarse crackles in the bilateral posterior bases. Maintaining good O2 saturations in the 90s on 2 L/m per nasal cannula. I discussed the assessment and plan of care with my nurse practitioner, Eleanor Meraz . I attest to the above consultation as dictated by her. Time with Patient: Greater than 30
[2021-01-24] MEDS: CHOLECALCIFEROL 25 MCG (1000 IU) TABLET PO SCH (11:31)
[2021-01-24] MEDS: ZINC SULFATE 220 MG CAP PO SCH (11:31)
[2021-01-24] MEDS: ASCORBIC ACID 500 MG TAB PO SCH (11:31)
[2021-01-24 11:36] LABS: Glucose,Whole Blood 98 mg/dL (75-99)
[2021-01-24] MEDS ORDERED: REMDESIVIR 200 MG in SODIUM CHLORIDE 0.9% 250 ML IVPB ONE (12:00)
[2021-01-24] MEDS: ALBUTEROL HFA INHALER INHALATION SCH ×3 (12:01→19:49)
[2021-01-24] MEDS: SODIUM CHLORIDE 0.9% 1,000 ML IV SCH (16:11)
[2021-01-24 16:55] LABS: Glucose,Whole Blood 110 mg/dL (75-99)
[2021-01-24 20:40] LABS: Glucose,Whole Blood 115 mg/dL (75-99)
[2021-01-24] MEDS: MELATONIN 5 MG TABLET PO SCH (22:01)
[2021-01-25 07:26] LABS: Glucose,Whole Blood 86 mg/dL (75-99)
[2021-01-25] MEDS: ALBUTEROL HFA INHALER INHALATION SCH ×4 (08:01→20:02)
[2021-01-25] MEDS: INSULIN ASPART (NovoLOG) 100 UNIT/ML VIAL SQ SCH ×4 (08:27→21:18)
[2021-01-25] MEDS: ENOXAPARIN 40 MG/0.4 ML SYRINGE SQ SCH (08:37)
[2021-01-25] MEDS: dexAMETHasone 2 MG TAB PO SCH (08:37)
[2021-01-25] MEDS: ZINC SULFATE 220 MG CAP PO SCH (08:38)
[2021-01-25] MEDS: CHOLECALCIFEROL 25 MCG (1000 IU) TABLET PO SCH (08:38)
[2021-01-25] MEDS: ASCORBIC ACID 500 MG TAB PO SCH (08:38)
--- NOTE | 2021-01-25 09:51 | XR ---
EXAMINATION TYPE: XR chest 1V portable DATE OF EXAM: 01/25/2021 COMPARISON: Chest x-ray 01/23/2021 HISTORY: Covid infection, abnormal chest x-ray TECHNIQUE: Single frontal view of the chest is obtained. FINDINGS: Bilateral airspace disease is again noted. Patient is rotated. No evident pneumothorax or pleural effusion. Cardiac mediastinal silhouette is stable. IMPRESSION: Correlate for pneumonia.
--- NOTE | 2021-01-25 10:01 | P.PN ---
Subjective Progress Note Date: 01/25/21 This is a very pleasant 35-year-old female patient who has a history of gestational diabetes. On 01/21/2021 she had a vaginal delivery of a healthy baby girl. She was seen and evaluated that day as she had tested positive for CoVID during a rapid screening. Her symptoms were quite mild and she was sub sequently discharged the next day on 01/22/2021. She returned to the emergency room last evening with increasing shortness of breath, cough and fever. T-max 101.[address] angiogram ruled out pulmonary embolism. There is noted bilateral patchy upper and lower lobe pneumonia. Consistent with CoVID 19 infection. White count 6.3. Hematoma 12.7. D-dimer 1.19. Sodium 135. Potassium 4.2. Creatinine 0.56. AST 48. ALT 17. LDH 810. C-reactive protein 68. She is seen today in consultation on the regular medical floor. She's presently sitting up in bed. Awake and alert in no acute distress. She has a dry nonproductive cough. Currently afebrile. Eating O2 saturations in the low 90s on 2 L/m per nasal cannula. Lowest saturation of 87%. He has been initiated on vitamin supplements, dexamethasone, Lovenox, melatonin. 01/25/2021, I'm seeing the patient for a follow-up regarding Covid 19 related pneumonia. Note that post-, the patient was noted to have a pneumonia. She was discharged home to come back and she was placed on 2 L. Overnight she had to be placed on 10 L high flow and then a Ventimask. Subsequently, this morning she is down to 4 L. She is feeling slightly worse. She has a cough and shortness of breath. No altered mentation. No nausea. No vomiting. No abdominal pain. No fever. Chest x-ray showing bilateral consolidation perihilar and the lower lobe, slightly worse compared to the earlier chest x- ray. Repeat chest x-ray was reviewed. The patient will be placed on IV Solu- Medrol. 6 mg of Decadron will be stopped. She is on REM today's day #2 of treatment Objective - Vital Signs Vital signs: Vital Signs Temp 98.5 F 01/25/21 07:00 Pulse 89 01/25/21 07:00 Resp 18 01/25/21 07:00 BP 91/61 01/25/21 07:00 Pulse Ox 94 L 01/25/21 07:00 Intake & Output 01/24/21 01/25/21 01/25/21 18:59 06:59 18:59 Intake Total 770 Balance 770 Intake: Intake, IV Titration 250 Amount Remdesivir 200 mg In 250 Sodium Chloride 0.9% 250 ml @ 250 mls/hr IVPB ONCE ONE Rx#:[id number] Oral 520 Other: # Voids 3 1 - Exam GENERAL EXAM: Alert, active, very pleasant 35-year-old female patient, on 4 L nasal cannula, comfortable in no apparent distress. HEAD: Normocephalic. EYES: Normal reaction of pupils, equal size. NOSE: Clear with pink turbinates. THROAT: No erythema or exudates. NECK: No masses, no JVD. CHEST: No chest wall deformity. LUNGS: Equal air entry with coarse crackles in the posterior bases. CVS: S1 and S2 normal with no audible murmur, regular rhythm. ABDOMEN: Soft. No hepatosplenomegaly, normal bowel sounds, no guarding or r igidity. SPINE: No scoliosis or deformity SKIN: No rashes CENTRAL NERVOUS SYSTEM: No focal deficits, tone is normal in all 4 extremities. EXTREMITIES: There is no peripheral edema. No clubbing, no cyanosis. Peripheral pulses are intact. - Labs CBC & Chem 7: 01/23/21 20:35 01/23/21 20:35 Labs: Abnormal Lab Results - Last 24 Hours (Table) 01/24/21 01/24/21 01/25/21 Range/Units 16:53 20:36 07:56 D-Dimer 1.13 H (<0.60) mg/L FEU POC Glucose (mg/dL) 110 H 115 H (75-99) mg/dL Microbiology - Last 24 Hours (Table) 01/23/21 20:56 Blood Culture - Preliminary Blood No Growth after 24 hours 01/23/21 20:35 Blood Culture - Preliminary Blood No Growth after 24 hours Assessment and Plan Plan: 1 Acute hypoxemic respiratory failure secondary to acute CoVID 19 pneumonia. Positive test 01/20/2021 at [facility]. Clinically slightly worse. Chest x- ray shows worsening of the consolidation. The patient is currently on 4 L about 2 by nasal cannula. She is a mouth breather and overnight her pulse ox was low and she was placed as high as 10 L and she has recovered since. She is down to 4 L for now. She is on steroids. She is on REM. 2 Post delivery on 01/21/2021. Baby girl being monitored here at the hospital 3 History of gestational diabetes Plan: A chest x-ray in a.m. Monitor inflammatory markers Stop Decadron use IV Solu Medrol 60 mg every 6 hours Remdesivir day #2 of treatment Titrate the FiO2 as tolerated, currently on 4 L Repeat chest x-ray and inflammatory markers in a.m. We'll continue to follow and make further recommendations based on her clinical status
[2021-01-25 12:05] LABS: Glucose,Whole Blood 108 mg/dL (75-99)
[2021-01-25] MEDS: REMDESIVIR 100 MG in SODIUM CHLORIDE 0.9% 250 ML IVPB SCH (12:17)
[2021-01-25] MEDS: methylPREDNISolone SOD SUCCI 125 MG/2 ML VIAL IV SCH ×2 (12:17→17:38)
--- NOTE | 2021-01-25 13:43 | P.PN ---
Subjective Progress Note Date: 01/25/21 Patient is doing fairly well today. She told me that she had a rough night last night. She was feeling more short of breath. Her oxygen requirement increased to 4 L via nasal cannula from 2 L on presentation. Objective - Vital Signs Vital signs: Vital Signs Temp 98.5 F 01/25/21 07:00 Pulse 89 01/25/21 07:00 Resp 18 01/25/21 07:00 BP 91/61 01/25/21 07:00 Pulse Ox 94 L 01/25/21 07:00 Intake & Output 01/24/21 01/25/21 01/25/21 18:59 06:59 18:59 Intake Total 770 Balance 770 Intake: Intake, IV Titration 250 Amount Remdesivir 200 mg In 250 Sodium Chloride 0.9% 250 ml @ 250 mls/hr IVPB ONCE ONE Rx#:[id number] Oral 520 Other: # Voids 3 1 - Exam General: The patient is awake and alert, in no distress Eye: there is normal conjunctiva bilaterally. Neck: The neck is supple, there is no JVD. Cardiovascular: Normal S1-S2, no S3-S4, no murmurs. Respiratory: Lungs clear to auscultation bilaterally Gastrointestinal: Abdomen is soft, nontender Musculoskeletal: There is no pedal edema. Neurological:. Speech is normal. Skin: Skin is warm and dry - Labs CBC & Chem 7: 01/23/21 20:35 01/23/21 20:35 Labs: Abnormal Lab Results - Last 24 Hours (Table) 01/24/21 01/24/21 01/25/21 Range/Units 16:53 20:36 07:56 D-Dimer 1.13 H (<0.60) mg/L FEU POC Glucose (mg/dL) 110 H 115 H (75-99) mg/dL 01/25/21 Range/Units 12:03 D-Dimer (<0.60) mg/L FEU POC Glucose (mg/dL) 108 H (75-99) mg/dL Microbiology - Last 24 Hours (Table) 01/23/21 20:56 Blood Culture - Preliminary Blood No Growth after 24 hours 01/23/21 20:35 Blood Culture - Preliminary Blood No Growth after 24 hours Assessment and Plan Assessment: This is a 35-year-old female that presented to the emergency room with worsening shortness of breath and cough. Patient was recently diagnosed with COVID-19 on January 21 and her symptoms as being getting worse. She was evaluated in the ER and was found to have O2 sats of 87% on room air. She is currently admitted to the hospital for further management of her medical problems noted below. 1. COVID-19 pneumonia: Continue supportive care. Vitamin C, vitamin D, zinc, and melatonin. Pulmonary consulted for further evaluation. Started on Decadron 6 mg daily for 2 days and now transitioned to IV Solu-Medrol 60 mg every 6 hours. Remdesivir day #2 2. Acute hypoxic respiratory failure: Wean off O2 as tolerated for O2 sats greater than 90%. Currently on 4 L of oxygen via nasal cannula 3. Severe sepsis without septic shock: Improved with aggressive IV fluid hydration. Lactic acid back to normal. Blood cultures negative to date 4. Elevated d-dimer: CT angiogram in the ED with no evidence of PE 5. One week with history of gestational diabetes 6. DVT prophylaxis with subcu Lovenox. Today, I reviewed her medication list and lab work results. Continue supportive care and current management. Appreciate information consultant's recommenda tions.
[2021-01-25 14:28] LABS: C Reactive Protein 5.2 mg/dL (0.0-0.8)
[2021-01-25 17:15] LABS: Glucose,Whole Blood 201 mg/dL (75-99)
[2021-01-25 21:03] LABS: Glucose,Whole Blood 126 mg/dL (75-99)
[2021-01-25] MEDS: MELATONIN 5 MG TABLET PO SCH (21:21)
[2021-01-26] MEDS: methylPREDNISolone SOD SUCCI 125 MG/2 ML VIAL IV SCH ×5 (00:48→23:43)
--- NOTE | 2021-01-26 07:34 | XR ---
EXAMINATION TYPE: XR chest 1V DATE OF EXAM: 01/26/2021 COMPARISON: 01/25/2021 HISTORY: Covid TECHNIQUE: Single frontal view of the chest is obtained. FINDINGS: There are moderate partially consolidative/airspace opacities in the mid lower lung zones unchanged s wilfrid the prior study. There is no definite pleural effusion or pneumothorax. The heart size is normal vasculature is not congested. The osseous structures are intact. IMPRESSION: No change in the bilateral mid and lower lung zone infiltrates.
[2021-01-26 07:37] LABS: Glucose,Whole Blood 135 mg/dL (75-99)
[2021-01-26] MEDS: ALBUTEROL HFA INHALER INHALATION SCH ×4 (07:59→19:33)
[2021-01-26] MEDS: ASCORBIC ACID 500 MG TAB PO SCH (08:12)
[2021-01-26] MEDS: INSULIN ASPART (NovoLOG) 100 UNIT/ML VIAL SQ SCH ×4 (08:12→20:44)
[2021-01-26] MEDS: ENOXAPARIN 40 MG/0.4 ML SYRINGE SQ SCH (08:12)
[2021-01-26] MEDS: CHOLECALCIFEROL 25 MCG (1000 IU) TABLET PO SCH (08:12)
[2021-01-26] MEDS: ZINC SULFATE 220 MG CAP PO SCH (08:12)
--- NOTE | 2021-01-26 08:32 | P.PN ---
Subjective Progress Note Date: 01/26/21 Patient is doing fairly well today. She denies any shortness of breath. She is currently on 4 L of oxygen via nasal cannula. O2 sat about 91%. No acute events overnight. Chest x-ray this morning showed no significant changes. Objective - Vital Signs Vital signs: Vital Signs Temp 97.6 F 01/26/21 07:00 Pulse 45 L 01/26/21 07:00 Resp 16 01/26/21 07:00 BP 96/55 01/26/21 07:00 Pulse Ox 91 L 01/26/21 07:00 Intake & Output 01/25/21 01/26/21 01/26/21 18:59 06:59 18:59 Intake Total 250 Balance 250 Weight 104.2 kg Intake: Intake, IV Titration 250 Amount Remdesivir 100 mg In 250 Sodium Chloride 0.9% 250 ml @ 250 mls/hr IVPB DAILY@1200 [facility] Rx#: [id number] Other: # Voids 3 1 - Exam General: The patient is awake and alert, in no distress Eye: there is normal conjunctiva bilaterally. Neck: The neck is supple, there is no JVD. Cardiovascular: Normal S1-S2, no S3-S4, no murmurs. Respiratory: Lungs clear to auscultation bilaterally Gastrointestinal: Abdomen is soft, nontender Musculoskeletal: There is no pedal edema. Neurological:. Speech is normal. Skin: Skin is warm and dry - Labs CBC & Chem 7: 01/23/21 20:35 01/23/21 20:35 Labs: Abnormal Lab Results - Last 24 Hours (Table) 01/25/21 01/25/21 01/25/21 Range/Units 07:56 07:56 12:03 D-Dimer 1.13 H (<0.60) mg/L FEU POC Glucose (mg/dL) 108 H (75-99) mg/dL Lactate Dehydrogenase 286 H (120-246) U/L C-Reactive Protein 5.2 H (0.0-0.8) mg/dL 01/25/21 01/25/21 01/26/21 Range/Units 17:13 21:01 07:36 D-Dimer (<0.60) mg/L FEU POC Glucose (mg/dL) 201 H 126 H 135 H (75-99) mg/dL Lactate Dehydrogenase (120-246) U/L C-Reactive Protein (0.0-0.8) mg/dL Microbiology - Last 24 Hours (Table) 01/23/21 20:56 Blood Culture - Preliminary Blood No Growth after 48 hours 01/23/21 20:35 Blood Culture - Preliminary Blood No Growth after 48 hours Assessment and Plan Assessment: This is a 35-year-old female that presented to the emergency room with worsening shortness of breath and cough. Patient was recently diagnosed with COVID-19 on January 21 and her symptoms as being getting worse. She was evaluated in the ER and was found to have O2 sats of 87% on room air. She is currently admitted to the hospital for further management of her medical problems noted below. 1. COVID-19 pneumonia: Continue supportive care. Vitamin C, vitamin D, zinc, and melatonin. Pulmonary consulted for further evaluation. Started on Decadron 6 mg daily for 2 days and now transitioned to IV Solu-Medrol 60 mg every 6 hours day #2. Remdesivir day #3 2. Acute hypoxic respiratory failure: Wean off O2 as tolerated for O2 sats greater than 90%. Currently on 4 L of oxygen via nasal cannula 3. Severe sepsis without septic shock: Improved with aggressive IV fluid hydration. Lactic acid back to normal. Blood cultures negative to date 4. Elevated d-dimer: CT angiogram in the ED with no evidence of PE 5. One week with history of gestational diabetes 6. DVT prophylaxis with subcu Lovenox. Today, I reviewed her medication list and lab work results. Continue suppo rtive care and current management. I would order an incentive spirometer to be performed every one hour while awake. Appreciate reimbursement consultant's recommendations.
[2021-01-26 09:52] LABS: Basophils % (A) 0 %; Eosinophils % (A) 0 %; HCT 37.4 % (34.0-46.0); HGB 12.5 gm/dL (11.4-16.0); Lymphocytes # (A) 0.7 k/uL (1.0-4.8); Lymphocytes % (A) 10 %; MCH 26.6 pg (25.0-35.0); MCHC 33.3 g/dL (31.0-37.0); Monocytes # (A) 0.2 k/uL (0-1.0); Monocytes % (A) 3 %; Neutrophils # (A) 5.8 k/uL (1.3-7.7); Neutrophils % (A) 86 %; Platelet Count 284 k/uL (150-450); RBC 4.67 m/uL (3.80-5.40); RDW 15.2 % (11.5-15.5); WBC 6.7 k/uL (3.8-10.6)
[2021-01-26 09:58] LABS: Potassium 4.7 mmol/L (3.5-5.1)
[2021-01-26 10:01] LABS: African American GFR (CKD) >90 (>60 ml/min/1.73 sqM); Anion Gap 11 mmol/L; Blood Urea Nitrogen 14 mg/dL (7-17); C Reactive Protein 86.4 mg/L (<10.0); Calcium 8.7 mg/dL (8.4-10.2); Carbon Dioxide 23 mmol/L (22-30); Chloride 106 mmol/L (98-107); Glucose 167 mg/dL (74-99); LDH 949 U/L (313-618); Non-African American GFR(CKD) >90 (>60 ml/min/1.73 sqM); Sodium 140 mmol/L (137-145)
[2021-01-26 11:38] LABS: Glucose,Whole Blood 132 mg/dL (75-99)
[2021-01-26] MEDS: REMDESIVIR 100 MG in SODIUM CHLORIDE 0.9% 250 ML IVPB SCH (12:42)
--- NOTE | 2021-01-26 14:20 | P.PN ---
Subjective Progress Note Date: 01/26/21 This is a very pleasant 35-year-old female patient who has a history of gestational diabetes. On 01/21/2021 she had a vaginal delivery of a healthy baby girl. She was seen and evaluated that day as she had tested positive for CoVID during a rapid screening. Her symptoms were quite mild and she was sub sequently discharged the next day on 01/22/2021. She returned to the emergency room last evening with increasing shortness of breath, cough and fever. T-max 101.[address] angiogram ruled out pulmonary embolism. There is noted bilateral patchy upper and lower lobe pneumonia. Consistent with CoVID 19 infection. White count 6.3. Hematoma 12.7. D-dimer 1.19. Sodium 135. Potassium 4.2. Creatinine 0.56. AST 48. ALT 17. LDH 810. C-reactive protein 68. She is seen today in consultation on the regular medical floor. She's presently sitting up in bed. Awake and alert in no acute distress. She has a dry nonproductive cough. Currently afebrile. Eating O2 saturations in the low 90s on 2 L/m per nasal cannula. Lowest saturation of 87%. He has been initiated on vitamin supplements, dexamethasone, Lovenox, melatonin. 01/25/2021, I'm seeing the patient for a follow-up regarding Covid 19 related pneumonia. Note that post-, the patient was noted to have a pneumonia. She was discharged home to come back and she was placed on 2 L. Overnight she had to be placed on 10 L high flow and then a Ventimask. Subsequently, this morning she is down to 4 L. She is feeling slightly worse. She has a cough and shortness of breath. No altered mentation. No nausea. No vomiting. No abdominal pain. No fever. Chest x-ray showing bilateral consolidation perihilar and the lower lobe, slightly worse compared to the earlier chest x- ray. Repeat chest x-ray was reviewed. The patient will be placed on IV Solu- Medrol. 6 mg of Decadron will be stopped. She is on REM today's day #2 of treatment The patient on 01/26/2021 is being seen for a follow-up. The patient is currently on 4 L of oxygen by nasal cannula. He is afebrile. BP stable. Note that the patient had significant cold with IV related pneumonia with extensive but the pulmonary infiltrates seen on earlier chest x-ray. She is essentially feeling the same, probably slightly better compared to yesterday. Otherwise, she is still IV Solu-Medrol. She is on REM and she is on day #3 of treatment. No side effects of the treatment. No agitation. No altered mentation. She is using incentive spirometer for now. Inflammatory markers from today is showing an LDH level of 949 which is higher and his CRP level of 86.4 which is also higher. D-dimer is at 1.12 and the patient is on Lovenox for DVT prophylaxis. Objective - Vital Signs Vital signs: Vital Signs Temp 97.6 F 01/26/21 07:00 Pulse 45 L 01/26/21 07:00 Resp 16 01/26/21 07:00 BP 96/55 01/26/21 07:00 Pulse Ox 91 L 01/26/21 07:00 Intake & Output 01/25/21 01/26/21 01/26/21 18:59 06:59 18:59 Intake Total 250 970 Balance 250 970 Weight 104.2 kg Intake: Intake, IV Titration 250 250 Amount Remdesivir 100 mg In 250 250 Sodium Chloride 0.9% 250 ml @ 250 mls/hr IVPB DAILY@1200 [facility] Rx#: [id number] Blood Product 720 Other: # Voids 3 1 3 - Exam GENERAL EXAM: Alert, active, very pleasant 35-year-old female patient, on 4 L nasal cannula, comfortable in no apparent distress. HEAD: Normocephalic. EYES: Normal reaction of pupils, equal size. NOSE: Clear with pink turbinates. THROAT: No erythema or exudates. NECK: No masses, no JVD. CHEST: No chest wall deformity. LUNGS: Equal air entry with coarse crackles in the posterior bases. CVS: S1 and S2 normal with no audible murmur, regular rhythm. ABDOMEN: Soft. No hepatosplenomegaly, normal bowel sounds, no guarding or rigidity. SPINE: No scoliosis or deformity SKIN: No rashes CENTRAL NERVOUS SYSTEM: No focal deficits, tone is normal in all 4 extremities. EXTREMITIES: There is no peripheral edema. No clubbing, no cyanosis. Peripheral pulses are intact. - Labs CBC & Chem 7: 01/26/21 08:47 01/26/21 08:47 Labs: Abnormal Lab Results - Last 24 Hours (Table) 01/25/21 01/25/21 01/25/21 Range/Units 07:56 17:13 21:01 Lymphocytes # (1.0-4.8) k/uL D-Dimer (<0.60) mg/L FEU Creatinine (0.52-1.04) mg/dL Glucose (74-99) mg/dL POC Glucose (mg/dL) 201 H 126 H (75-99) mg/dL Lactate Dehydrogenase 286 H (120-246) U/L C-Reactive Protein 5.2 H (0.0-0.8) mg/dL 01/26/21 01/26/21 01/26/21 Range/Units 07:36 08:47 08:47 Lymphocytes # 0.7 L (1.0-4.8) k/uL D-Dimer (<0.60) mg/L FEU Creatinine 0.48 L (0.52-1.04) mg/dL Glucose 167 H (74-99) mg/dL POC Glucose (mg/dL) 135 H (75-99) mg/dL Lactate Dehydrogenase 949 H (120-246) U/L C-Reactive Protein 86.4 H (0.0-0.8) mg/dL 01/26/21 01/26/21 Range/Units 08:47 11:37 Lymphocytes # (1.0-4.8) k/uL D-Dimer 1.12 H (<0.60) mg/L FEU Creatinine (0.52-1.04) mg/dL Glucose (74-99) mg/dL POC Glucose (mg/dL) 132 H (75-99) mg/dL Lactate Dehydrogenase (120-246) U/L C-Reactive Protein (0.0-0.8) mg/dL Microbiology - Last 24 Hours (Table) 01/23/21 20:56 Blood Culture - Preliminary Blood No Growth after 48 hours 01/23/21 20:35 Blood Culture - Preliminary Blood No Growth after 48 hours Assessment and Plan Plan: 1 Acute hypoxemic respiratory failure secondary to acute CoVID 19 pneumonia. Positive test 01/20/2021 at [facility]. Clinically slightly worse. Chest x- ray shows worsening of the consolidation. The patient is currently on 4 L about 2 by nasal cannula. On today's evaluation, the patient is clinically the same, yet the telemetry markers have gotten 2 Post delivery on 01/21/2021. Baby girl being monitored here at the hospital 3 History of gestational diabetes 4 left. He is secondary to COVID related infection Plan: Monitor inflammatory markers Stop Decadron use IV Solu Medrol 60 mg every 6 hours Remdesivir day #3 of treatment Titrate the FiO2 as tolerated, currently on 4 L, unable to wean as the patient's pulse ox in the low 90s Repeat chest x-ray and inflammatory markers in a.m. We'll continue to follow and make further recommendations based on her clinical status
[2021-01-26 17:25] LABS: Glucose,Whole Blood 161 mg/dL (75-99)
[2021-01-26] MEDS: MELATONIN 5 MG TABLET PO SCH (20:30)
[2021-01-26 20:48] LABS: Glucose,Whole Blood 171 mg/dL (75-99)
[2021-01-27] MEDS: methylPREDNISolone SOD SUCCI 125 MG/2 ML VIAL IV SCH ×2 (06:11→12:30)
[2021-01-27 07:10] LABS: Glucose,Whole Blood 122 mg/dL (75-99)
--- NOTE | 2021-01-27 07:29 | XR ---
EXAMINATION TYPE: XR chest 1V portable DATE OF EXAM: 01/27/2021 COMPARISON: 01/26/2021 HISTORY: Pneumonia TECHNIQUE: Single frontal view of the chest is obtained. FINDINGS: Progressive perihilar and basilar infiltrates compatible with pneumonia. Continued follow-up is advis ed. The cardiac silhouette size is within normal limits. The osseous structures are intact. IMPRESSION: 1. Progressive perihilar and basilar infiltrates compatible with pneumonia. Continued follow-up is a dvised.
[2021-01-27] MEDS: INSULIN ASPART (NovoLOG) 100 UNIT/ML VIAL SQ SCH ×4 (07:42→21:20)
[2021-01-27] MEDS: ALBUTEROL HFA INHALER INHALATION SCH ×4 (08:07→19:56)
[2021-01-27] MEDS: ZINC SULFATE 220 MG CAP PO SCH (08:30)
[2021-01-27] MEDS: ASCORBIC ACID 500 MG TAB PO SCH (08:30)
[2021-01-27] MEDS: CHOLECALCIFEROL 25 MCG (1000 IU) TABLET PO SCH (08:31)
[2021-01-27] MEDS: ENOXAPARIN 40 MG/0.4 ML SYRINGE SQ SCH (08:31)
[2021-01-27 09:18] LABS: C Reactive Protein 3.8 mg/dL (0.0-0.8)
[2021-01-27 11:24] LABS: Glucose,Whole Blood 129 mg/dL (75-99)
[2021-01-27] MEDS: REMDESIVIR 100 MG in SODIUM CHLORIDE 0.9% 250 ML IVPB SCH (12:30)
--- NOTE | 2021-01-27 12:50 | P.PN ---
Subjective Progress Note Date: 01/27/21 Patient is doing fairly well today. She denies any shortness of breath. She is currently off of oxygen with O2 saturation greater than 90%. Objective - Vital Signs Vital signs: Vital Signs Temp 97.7 F 01/27/21 07:00 Pulse 37 L 01/27/21 07:00 Resp 18 01/27/21 07:00 BP 118/60 01/27/21 07:00 Pulse Ox 93 L 01/27/21 07:00 Intake & Output 01/26/21 01/27/21 01/27/21 18:59 06:59 18:59 Intake Total 970 Balance 970 Weight 104.5 kg Intake: Intake, IV Titration 250 Amount Remdesivir 100 mg In 250 Sodium Chloride 0.9% 250 ml @ 250 mls/hr IVPB DAILY@1200 [facility] Rx#: [id number] Blood Product 720 Other: # Voids 3 2 - Exam General: The patient is awake and alert, in no distress Eye: there is normal conjunctiva bilaterally. Neck: The neck is supple, there is no JVD. Cardiovascular: Normal S1-S2, no S3-S4, no murmurs. Respiratory: Lungs clear to auscultation bilaterally Gastrointestinal: Abdomen is soft, nontender Musculoskeletal: There is no pedal edema. Neurological:. Speech is normal. Skin: Skin is warm and dry - Labs CBC & Chem 7: 01/26/21 08:47 01/26/21 08:47 Labs: Abnormal Lab Results - Last 24 Hours (Table) 01/26/21 01/26/21 01/27/21 Range/Units 17:23 20:40 06:31 D-Dimer 1.51 H (<0.60) mg/L FEU POC Glucose (mg/dL) 161 H 171 H (75-99) mg/dL Lactate Dehydrogenase (120-246) U/L C-Reactive Protein (0.0-0.8) mg/dL 01/27/21 01/27/21 01/27/21 Range/Units 06:31 07:09 11:22 D-Dimer (<0.60) mg/L FEU POC Glucose (mg/dL) 122 H 129 H (75-99) mg/dL Lactate Dehydrogenase 360 H (120-246) U/L C-Reactive Protein 3.8 H (0.0-0.8) mg/dL Microbiology - Last 24 Hours (Table) 01/23/21 20:56 Blood Culture - Preliminary Blood No Growth after 72 hours 01/23/21 20:35 Blood Culture - Preliminary Blood No Growth after 72 hours Assessment and Plan Assessment: This is a 35-year-old female that presented to the emergency room with worsening shortness of breath and cough. Patient was recently diagnosed with COVID-19 on January 21 and her symptoms as being getting worse. She was evaluated in the ER and was found to have O2 sats of 87% on room air. She is currently admitted to the hospital for further management of her medical problems noted below. 1. COVID-19 pneumonia: Continue supportive care. Vitamin C, vitamin D, zinc, and melatonin. Pulmonary consulted for further evaluation. Started on Decadron 6 mg daily for 2 days then transitioned to IV Solu-Medrol 60 mg every 6 hours for 3 days. Remdesivir day #4. I would discontinue IV Solu-Medrol and transitioned back to oral Decadron starting tomorrow 2. Acute hypoxic respiratory failure: Resolved currently on room air 3. Severe sepsis without septic shock: Improved with aggressive IV fluid hydration. Lactic acid back to normal. Blood cultures negative to date 4. Elevated d-dimer: CT angiogram in the ED with no evidence of PE 5. One week with history of gestational diabetes 6. DVT prophylaxis with subcu Lovenox. Today, I reviewed her medication list and lab work results. Continue supportive care and current management. Anticipate discharge home in the morning
--- NOTE | 2021-01-27 15:35 | P.PN ---
Subjective Progress Note Date: 01/27/21 This is a very pleasant 35-year-old female patient who has a history of gestational diabetes. On 01/21/2021 she had a vaginal delivery of a healthy baby girl. She was seen and evaluated that day as she had tested positive for CoVID during a rapid screening. Her symptoms were quite mild and she was sub sequently discharged the next day on 01/22/2021. She returned to the emergency room last evening with increasing shortness of breath, cough and fever. T-max 101.[address] angiogram ruled out pulmonary embolism. There is noted bilateral patchy upper and lower lobe pneumonia. Consistent with CoVID 19 infection. White count 6.3. Hematoma 12.7. D-dimer 1.19. Sodium 135. Potassium 4.2. Creatinine 0.56. AST 48. ALT 17. LDH 810. C-reactive protein 68. She is seen today in consultation on the regular medical floor. She's presently sitting up in bed. Awake and alert in no acute distress. She has a dry nonproductive cough. Currently afebrile. Eating O2 saturations in the low 90s on 2 L/m per nasal cannula. Lowest saturation of 87%. He has been initiated on vitamin supplements, dexamethasone, Lovenox, melatonin. 01/25/2021, I'm seeing the patient for a follow-up regarding Covid 19 related pneumonia. Note that post-, the patient was noted to have a pneumonia. She was discharged home to come back and she was placed on 2 L. Overnight she had to be placed on 10 L high flow and then a Ventimask. Subsequently, this morning she is down to 4 L. She is feeling slightly worse. She has a cough and shortness of breath. No altered mentation. No nausea. No vomiting. No abdominal pain. No fever. Chest x-ray showing bilateral consolidation perihilar and the lower lobe, slightly worse compared to the earlier chest x- ray. Repeat chest x-ray was reviewed. The patient will be placed on IV Solu- Medrol. 6 mg of Decadron will be stopped. She is on REM today's day #2 of treatment The patient on 01/26/2021 is being seen for a follow-up. The patient is currently on 4 L of oxygen by nasal cannula. He is afebrile. BP stable. Note that the patient had significant cold with IV related pneumonia with extensive but the pulmonary infiltrates seen on earlier chest x-ray. She is essentially feeling the same, probably slightly better compared to yesterday. Otherwise, she is still IV Solu-Medrol. She is on REM and she is on day #3 of treatment. No side effects of the treatment. No agitation. No altered mentation. She is using incentive spirometer for now. Inflammatory markers from today is showing an LDH level of 949 which is higher and his CRP level of 86.4 which is also higher. D-dimer is at 1.12 and the patient is on Lovenox for DVT prophylaxis. On today's evaluation the patient is doing much better. Less short of breath. She has been weaned off the oxygen she is currently on room air oxygen and pulse is around 90%. She is on the Decadron and REM. Her LDH is down to 360. CRP is down to 3.8 and the d-dimer is down to 1.5. Inflammatory markers are improving. D-dimer is slightly higher. She is on Lovenox. Objective - Vital Signs Vital signs: Vital Signs Temp 97.5 F L 01/27/21 15:00 Pulse 44 L 01/27/21 15:00 Resp 18 01/27/21 15:00 BP 111/71 01/27/21 15:00 Pulse Ox 94 L 01/27/21 15:00 Intake & Output 01/26/21 01/27/21 01/27/21 18:59 06:59 18:59 Intake Total 970 970 Balance 970 970 Weight 104.5 kg Intake: Intake, IV Titration 250 250 Amount Remdesivir 100 mg In 250 250 Sodium Chloride 0.9% 250 ml @ 250 mls/hr IVPB DAILY@1200 [facility] Rx#: [id number] Oral 720 Blood Product 720 Other: # Voids 3 2 3 - Exam GENERAL EXAM: Alert, active, very pleasant 35-year-old female patient, on RA, comfortable in no apparent distress. HEAD: Normocephalic. EYES: Normal reaction of pupils, equal size. NOSE: Clear with pink turbinates. THROAT: No erythema or exudates. NECK: No masses, no JVD. CHEST: No chest wall deformity. LUNGS: Equal air entry with coarse crackles in the posterior bases. CVS: S1 and S2 normal with no audible murmur, regular rhythm. ABDOMEN: Soft. No hepatosplenomegaly, normal bowel sounds, no guarding or rigidity. SPINE: No scoliosis or deformity SKIN: No rashes CENTRAL NERVOUS SYSTEM: No focal deficits, tone is normal in all 4 extremities. EXTREMITIES: There is no peripheral edema. No clubbing, no cyanosis. Peripheral pulses are intact. - Labs CBC & Chem 7: 01/26/21 08:47 01/26/21 08:47 Labs: Abnormal Lab Results - Last 24 Hours (Table) 01/26/21 01/26/21 01/27/21 Range/Units 17:23 20:40 06:31 D-Dimer 1.51 H (<0.60) mg/L FEU POC Glucose (mg/dL) 161 H 171 H (75-99) mg/dL Lactate Dehydrogenase (120-246) U/L C-Reactive Protein (0.0-0.8) mg/dL 01/27/21 01/27/21 01/27/21 Range/Units 06:31 07:09 11:22 D-Dimer (<0.60) mg/L FEU POC Glucose (mg/dL) 122 H 129 H (75-99) mg/dL Lactate Dehydrogenase 360 H (120-246) U/L C-Reactive Protein 3.8 H (0.0-0.8) mg/dL Microbiology - Last 24 Hours (Table) 01/23/21 20:56 Blood Culture - Preliminary Blood No Growth after 72 hours 01/23/21 20:35 Blood Culture - Preliminary Blood No Growth after 72 hours Assessment and Plan Plan: 1 Acute hypoxemic respiratory failure secondary to acute CoVID 19 pneumonia. Positive test 01/20/2021 at [facility]. Improved and the patient is currently on room air oxygen. Extremity markers of also decline. 2 Post delivery on 01/21/2021. Baby girl being monitored here at the hospital 3 History of gestational diabetes 4 left. He is secondary to COVID related infection Plan: Monitor inflammatory markers, markers are all improving, d-dimer is at 1.5 IV Solu Medrol 60 mg every 6 hours Remdesivir day #4 of treatment Titrate the FiO2 as tolerated, currently on RA Chest x-ray however it is showing progressive perihilar pulmonary infiltrates compatible with pneumonia. Follow-up is recommended. We'll continue to follow and make further recommendations based on her clinical status
[2021-01-27 17:08] LABS: Glucose,Whole Blood 206 mg/dL (75-99)
[2021-01-27 20:45] LABS: Glucose,Whole Blood 148 mg/dL (75-99)
[2021-01-27] MEDS: MELATONIN 5 MG TABLET PO SCH (21:19)
[2021-01-28 07:32] LABS: Glucose,Whole Blood 83 mg/dL (75-99)
[2021-01-28 08:06] VITALS: RESP 16
[2021-01-28] MEDS: INSULIN ASPART (NovoLOG) 100 UNIT/ML VIAL SQ SCH ×2 (08:12→12:39)
[2021-01-28] MEDS: ALBUTEROL HFA INHALER INHALATION SCH ×3 (08:34→15:41)
--- NOTE | 2021-01-28 08:35 | XR ---
EXAMINATION TYPE: XR chest 1V portable DATE OF EXAM: 01/28/2021 COMPARISON: Chest x-ray 01/27/2021 HISTORY: Covid pneumonia TECHNIQUE: Single frontal view of the chest is obtained. FINDINGS: Bilateral airspace disease is again seen, lung volumes somewhat improved. No evident pneum othorax or pleural effusion. Cardiac mediastinal silhouette is stable. IMPRESSION: Correlate for pneumonia.
[2021-01-28] MEDS ORDERED: dexAMETHasone 2 MG TAB PO SCH (09:00)
[2021-01-28] MEDS: CHOLECALCIFEROL 25 MCG (1000 IU) TABLET PO SCH (09:01)
[2021-01-28] MEDS: ENOXAPARIN 40 MG/0.4 ML SYRINGE SQ SCH (09:02)
[2021-01-28] MEDS: ASCORBIC ACID 500 MG TAB PO SCH (09:02)
[2021-01-28] MEDS: ZINC SULFATE 220 MG CAP PO SCH (09:02)
--- NOTE | 2021-01-28 09:41 | P.DS ---
Providers Date of admission: 01/23/21 21:55 Expected date of discharge: 01/28/21 Attending physician: Quentin Horta MD Consults: 01/23/21 21:55 Consult Physician Routine Consulting Provider: Duane Braun Consult Reason/Comments: COVID PNA, hypoxia Do you want consulting provider notified?: Yes Primary care physician: [facility] Course: This is a 35-year-old female with past medical history noted below who presented to the emergency room with worsening shortness of breath and cough. Patient was admitted to the hospital for further management of her medical problems noted below. 1. COVID-19 pneumonia: Vitamin C, vitamin D, zinc, and melatonin. Pulmonary consulted for further evaluation. She will finish 10 days course of steroids with Decadron 6 mg daily. Remdesivir day #5 today. 2. Acute hypoxic respiratory failure: Resolved currently on room air 3. Severe sepsis without septic shock: Improved with aggressive IV fluid hydration. Lactic acid back to normal. Blood cultures negative to date 4. Elevated d-dimer: CT angiogram in the ED with no evidence of PE 5. 2 weeks with history of gestational diabetes Patient will be discharged home in a stable condition. For further details about this hospitalization please refer to the electronic chart Patient Condition at Discharge: Stable Plan - Discharge Summary New Discharge Prescriptions: New Dexamethasone [Decadron] 6 mg PO DAILY #5 tablet Melatonin 5 mg PO HS #14 tablet Zinc Sulfate [Orazinc] 220 mg PO DAILY #14 cap Ascorbic Acid [Vitamin C] 1,000 mg PO DAILY #28 tab Cholecalciferol [Vitamin D3 (25 Mcg = 1000 Iu)] 100 mcg PO DAILY #30 tablet Albuterol Inhaler [Ventolin Hfa Inhaler] 2 puff INHALATION RT-QID PRN #1 inh PRN Reason: Shortness Of Breath Continue Pnv No.95/Ferrous Fum/Folic AC [ Multivitamin Tablet] 1 tab PO DAILY Discharge Medication List Pnv No.95/Ferrous Fum/Folic AC [ Multivitamin Tablet] 1 tab PO DAILY 07/31/20 [History] Albuterol Inhaler [Ventolin Hfa Inhaler] 2 puff INHALATION RT-QID PRN #1 inh 01/28/21 [Rx] Ascorbic Acid [Vitamin C] 1,000 mg PO DAILY #28 tab 01/28/21 [Rx] Cholecalciferol [Vitamin D3 (25 Mcg = 1000 Iu)] 100 mcg PO DAILY #30 tablet 01/28/21 [Rx] Dexamethasone [Decadron] 6 mg PO DAILY #5 tablet 01/28/21 [Rx] Melatonin 5 mg PO HS #14 tablet 01/28/21 [Rx] Zinc Sulfate [Orazinc] 220 mg PO DAILY #14 cap 01/28/21 [Rx] Follow up Appointment(s)/Referral(s): Thea Noel MD [Primary Care Provider] - 1-2 days Discharge Disposition: HOME SELF-CARE
[2021-01-28] MEDS: REMDESIVIR 100 MG in SODIUM CHLORIDE 0.9% 250 ML IVPB SCH (10:52)
[2021-01-28 12:04] LABS: Glucose,Whole Blood 85 mg/dL (75-99)
--- NOTE | 2021-01-28 14:54 | P.CRDCN ---
History of Present Illness History of present illness: HISTORY OF PRESENTING ILLNESS This is a pleasant 35-year-old female past medical history significant for gestational diabetes. She is 2 weeks post . 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 We have been asked to see in consultation for bradycardia. Patient is being admitted with COVID-19 infection. She was in sinus bradycardia with HR high 30s-40s. Patient is asymptomatic Telemetry reviewed- patient is in sinus bradycardia and sinus rhythm. REVIEW OF SYSTEMS At the time of my exam: CONSTITUTIONAL: Denies fever or chills. CARDIOVASCULAR: +shortness of breath intermittent Denies chest pain, orthopnea, PND or palpitations. RESPIRATORY: + cough. GASTROINTESTINAL: Denies abdominal pain, diarrhea, constipation, nausea or vomiting. MUSCULOSKELETAL: Denies myalgias. NEUROLOGIC: Denies numbness, tingling, headacbe or weakness. ENDOCRINE: Denies fatigue, weight change, polydipsia or polyurina. GENITOURINARY: Denies burning, hematuria or urgency with micturation. HEMATOLOGIC: Denies history of anemia or bleeding. PHYSICAL EXAMINATION Blood pressure 99/57 heart rate 48 afebrile and maintaining oxygen saturation on room air CONSTITUTIONAL: No apparent distress. HEENT: Head is normocephalic. Pupils are equal, round. Sclerae anicteric. Mucous membranes of the mouth are moist. No JVD. No carotid bruit. CHEST EXAMINATION: Lungs are clear to auscultation. No chest wall tenderness is noted on palpation or with deep breathing. HEART EXAMINATION: Regular rate and rhythm. S1, S2 heard. No murmurs, gallops or rub. ABDOMEN: Soft, nontender. Positive bowel sounds. EXTREMITIES: 2+ peripheral pulses, no lower extremity edema and no calf tenderness. NEUROLOGIC EXAMINATION: Patient is awake, alert and oriented x3. ASSESSMENT Covid-19 infection Sinus Bradycardia Elevated D dimer- CT with no evidence of PE PLAN -TSH within normal limits. Patient is asymptomatic with sinus bradycardia. When ambulating patient's HR increased to 120s, sinus tachycardia. -No further cardiac workup at this time. Nurse Practitioner note has been reviewed, I agree with a documented findings and plan of care. Patient was seen and examined. Past Medical History Past Medical History: Pneumonia Additional Past Medical History / Comment(s): Gestational diabetes. COVID History of Any Multi-Drug Resistant Organisms: None Reported Past Surgical History: No Surgical Hx Reported Additional Past Surgical History / Comment(s): [place] Tooth extraction Past Anesthesia/Blood Transfusion Reactions: No Reported Reaction Past Psychological History: No Psychological Hx Reported Smoking Status: Never smoker Past Alcohol Use History: None Reported Past Drug Use History: None Reported - Past Family History Mother Family Medical History: Diabetes Mellitus, Thyroid Disorder Additional Family Medical History / Comment(s): Arthritis, type II DM, MS Sister(s) Family Medical History: Thyroid Disorder Medications and Allergies Home Medications Medication Instructions Recorded Confirmed Type Pnv No.95/Ferrous Fum/Folic AC 1 tab PO DAILY 07/31/20 01/23/21 History [ Multivitamin Tablet] Albuterol Inhaler [Ventolin Hfa 2 puff INHALATION RT-QID PRN #1 inh 01/28/21 Rx Inhaler] Ascorbic Acid [Vitamin C] 1,000 mg PO DAILY #28 tab 01/28/21 Rx Cholecalciferol [Vitamin D3 (25 100 mcg PO DAILY #30 tablet 01/28/21 Rx Mcg = 1000 Iu)] Dexamethasone [Decadron] 6 mg PO DAILY #5 tablet 01/28/21 Rx Melatonin 5 mg PO HS #14 tablet 01/28/21 Rx Zinc Sulfate [Orazinc] 220 mg PO DAILY #14 cap 01/28/21 Rx Allergies Allergy/AdvReac Type Severity Reaction Status Date / Time No Known Allergies Allergy Verified 01/23/21 22:37 Physical Exam Vitals: Vital Signs Temp Pulse Pulse Resp BP Pulse Ox 01/28/21 14:00 48 L 37 L 16 01/28/21 09:52 48 L 01/28/21 08:00 37 L 16 01/28/21 07:00 97.6 F 37 L 16 99/57 95 01/28/21 01:20 97.7 F 39 L 15 118/69 93 L 01/27/21 19:05 97.7 F 41 L 14 130/78 93 L 01/27/21 15:00 97.5 F L 44 L 18 111/71 94 L Intake and Output 01/27/21 01/28/21 01/28/21 22:59 06:59 14:59 Intake Total 418 Balance 418 Intake: Oral 418 Other: Voiding Method Toilet Toilet Toilet # Voids 1 1 2 Weight 105.3 kg Results 01/26/21 08:47 01/26/21 08:47 Current Medications Generic Name Dose Route Start Last Admin Trade Name Gilbertoq PRN Reason Stop Dose Admin Acetaminophen 650 mg 01/23/21 21:55 Acetaminophen Tab 325 Mg Tab PO Q6HR PRN Mild Pain or Fever > 100.5 Albuterol Sulfate 2 puff 01/24/21 12:00 01/28/21 11:49 Albuterol Hfa Inhaler INHALATION 2 puff RT-QID HERMILA Administration Ascorbic Acid 1,000 mg 01/24/21 09:45 01/28/21 09:02 Ascorbic Acid 500 Mg Tab PO 1,000 mg DAILY HERMILA Administration Cholecalciferol 100 mcg 01/24/21 09:45 01/28/21 09:01 Cholecalciferol 25 Mcg (1000 Iu) Tablet PO 100 mcg DAILY HERMILA Administration Dexamethasone 6 mg 01/28/21 09:00 01/28/21 09:02 Dexamethasone 2 Mg Tab PO 6 mg DAILY HERMILA Administration Enoxaparin Sodium 40 mg 01/24/21 09:00 01/28/21 09:02 Enoxaparin 40 Mg/0.4 Ml Syringe SQ 40 mg DAILY HERMILA Administration Insulin Aspart 0 unit 01/24/21 07:30 01/28/21 12:39 Insulin Aspart (Novolog) 100 Unit/Ml Vial SQ Not Given ACHS [facility] Protocol Melatonin 5 mg 01/24/21 21:00 01/27/21 21:19 Melatonin 5 Mg Tablet PO Not Given HS HERMILA Naloxone HCl 0.2 mg 01/23/21 21:55 Naloxone 0.4 Mg/Ml 1 Ml Vial IV Q2M PRN Opioid Reversal Zinc Sulfate 220 mg 01/24/21 09:45 01/28/21 09:02 Zinc Sulfate 220 Mg Cap PO 220 mg DAILY HERMILA Administration Intake and Output 01/27/21 01/28/21 01/28/21 22:59 06:59 14:59 Intake Total 418 Balance 418 Intake: Oral 418 Other: Voiding Method Toilet Toilet Toilet # Voids 1 1 2 Weight 105.3 kg 01/26/21 08:47 01/26/21 08:47
[2021-01-28 15:16] VITALS: BP 95/57; PULSE 50; TEMP 97.4
== END 2021-01-28 15:42 | disposition home or self-care (01) | DRG 776 ==
LOC: EC 17:05 → 4SSUR 21:55 → 6NMEDSUR 01-24 00:25
PROVIDERS: ADMIT Internal Medicine; ATTEND Internal Medicine
PROC: XW033E5 Introduction of Remdesivir Anti-infective into Peripheral Vein, Percutaneous Approach, New Technology Group 5 (ICD-10-PCS; principal; 2021-01-24)
DX: O85 Puerperal sepsis (principal); J12.82 Pneumonia due to coronavirus disease 2019; R65.20 Severe sepsis without septic shock; J96.01 Acute respiratory failure with hypoxia; U07.1 COVID-19; O98.53 Other viral diseases complicating the puerperium; R00.1 Bradycardia, unspecified; O24.439 Gestational diabetes mellitus in the puerperium, unspecified control; R53.81 Other malaise; Z79.899 Other long term (current) drug therapy; Z98.818 Other dental procedure status; Z83.3 Family history of diabetes mellitus; Z83.49 Family history of other endocrine, nutritional and metabolic diseases; Z82.61 Family history of arthritis; Z82.0 Family history of epilepsy and other diseases of the nervous system
CPT/HCPCS: 36415; 71045; 71275; 80048; 80053; 82728; 83605; 83615; 83735; 84145; 84443; 85025; 85379; 85610; 85730; 86140; 87040; 93005; 94640; 96365; 99285

== ENCOUNTER 2023-05-03 01:55 | Inpatient (IN) | payer BC ==
[2023-05-03 02:16] LABS: Glucose,Whole Blood 121 mg/dL (70-110)
[2023-05-03] MEDS: LACTATED RINGERS 1,000 ML IV SCH ×3 (02:17→17:19)
[2023-05-03] MEDS ORDERED: CARBOPROST TROMETHAMINE 250 MCG/ML 1 ML AMP IM PRN (03:12)
[2023-05-03] MEDS ORDERED: OXYTOCIN 10 UNIT/ML 1 ML VIAL IM PRN (03:12)
[2023-05-03] MEDS ORDERED: METHYLERGONOVINE 0.2 MG/ML 1 ML AMP IM PRN (03:12)
[2023-05-03] MEDS ORDERED: TRANEXAMIC 1,000 MG/100ML-NACL 1,000 MG in EMPTY BAG 1 BAG IV PRN (03:12)
[2023-05-03] MEDS ORDERED: miSOPROStoL 200 MCG TAB PO PRN (03:12)
[2023-05-03] MEDS ORDERED: TERBUTALINE 1 MG/ML VIAL SQ PRN (03:12)
[2023-05-03] MEDS ORDERED: PENICILLIN G POTASSIUM 5,000,000 UNIT in DEXTROSE 5% IN WATER 100 ML IVPB STA ×2 (03:12)
[2023-05-03] MEDS ORDERED: LIDOCAINE 0.5% (PF) 5 MG/ML (50 ML SDV) SQ PRN (03:12)
[2023-05-03] MEDS ORDERED: LIDOCAINE 2% INJ 20 MG/ML (2 ML VIAL) ONE (05:35)
[2023-05-03] MEDS ORDERED: GLYCOPYRROLATE 0.2 MG/ML 2 ML VIAL ONE (05:35)
[2023-05-03] MEDS ORDERED: ROCURONIUM 10 MG/ML (5 ML VIAL) IV ONE (05:35)
[2023-05-03] MEDS ORDERED: PROPOFOL 10 MG/ML 20 ML VIAL IV ONE (05:35)
[2023-05-03] MEDS ORDERED: fentaNYL (PF) 50 MCG/ML 2 ML AMP ONE (05:35)
[2023-05-03] MEDS ORDERED: NEOSTIGMINE 1 MG/ML 10 ML VIAL ONE (05:35)
[2023-05-03] MEDS ORDERED: OXYTOCIN 30 UNITS/500 ML NS BAG IV ONE (05:35)
[2023-05-03] MEDS ORDERED: SUCCINYLCHOLINE CHLORIDE 200 MG/10 ML VIAL IV ONE (05:35)
[2023-05-03] MEDS ORDERED: SODIUM CHLORIDE 0.9% 100 ML BAG ONE (05:45)
[2023-05-03] MEDS ORDERED: ceFAZolin 1,000 MG VIAL ONE (05:45)
[2023-05-03] MEDS ORDERED: LANOLIN CREAM 5 GM TUBE TOPICAL PRN (06:41)
[2023-05-03] MEDS ORDERED: diphenhydrAMINE 50 MG/ML 1 ML VIAL IVP PRN ×2 (06:41)
[2023-05-03] MEDS ORDERED: METOCLOPRAMIDE 5 MG/ML 2 ML VIAL IVP PRN (06:41)
[2023-05-03] MEDS ORDERED: SIMETHICONE 80 MG CHEWABLE PO PRN (06:41)
[2023-05-03] MEDS ORDERED: HYDROmorphone PCA 10 MG/50 ML BAG IV PRN (06:41)
[2023-05-03] MEDS ORDERED: diphenhydrAMINE 50 MG CAP PO PRN (06:41)
[2023-05-03] MEDS ORDERED: diphenhydrAMINE 25 MG CAP PO PRN (06:41)
[2023-05-03] MEDS ORDERED: NALOXONE 0.4 MG/ML 1 ML VIAL IV PRN (06:41)
[2023-05-03] MEDS ORDERED: ZOLPIDEM 5 MG TAB PO PRN (06:41)
[2023-05-03] MEDS ORDERED: ONDANSETRON 4 MG/2 ML VIAL IVP PRN (06:41)
[2023-05-03] MEDS ORDERED: KETOROLAC 15 MG/ML 1 ML VIAL IVP PRN (06:41)
[2023-05-03] MEDS ORDERED: OXYTOCIN 30 UNITS/500 ML NS 30 UNIT in SALINE 1 500ML.BAG IV SCH ×2 (06:45→08:00)
--- NOTE | 2023-05-03 06:52 | P.HPOB ---
History of Present Illness H&P Date: 05/03/23 Chief Complaint: 40 and one sevenths weeks, spontaneous rupture of membranes The patient is a 37-year-old 4 para 3003 presents to labor and delivery at 40 and one sevenths weeks as established by last menstrual period and confirmed by 12 week ultrasound. She presents with documented spontaneous rupture of membranes for moderate to thick meconium-stained fluid and possibly in early labor. Her was complicated by a diagnosis of gestational diabetes having failed her 1 hour Glucola but declined to undergo three-hour glucose tolerance test she is using instead to be treated is a diabetic. Her blood sugars were normal throughout as was testing. Her fetus was additionally found to have a single umbilical artery for which she had weekly NSTs after 32 weeks. She additionally was in the category of advanced maternal age and declined trisomy testing. On labor and delivery, all signs were reassuring with a category 1 heart rate tracing. She did request minimal intervention though she did allow placement of IV access. She additionally was found to be group B strep positive and therefore did have requirement for intermittent IV antibiotics per protocol. Obstetrical history: 4 para 3003 with 3 term vaginal deliveries without complications. Current statistics are listed in history of present illness. EDC of 05/02/2023 was established by last menstrual period and confirmed by 12 week ultrasound. Laboratory workup demonstrates a blood type of A+ with a negative antibody screen. Rubella status is immune. The remainder of the laboratory workup was within normal limits. Early Glucola was elevated and the patient chose to be treated is a diabetic rather than undergo three-hour glucose tolerance testing. Group B strep status is positive. Gynecologic history: Unremarkable with no history of any infections to include STDs. Review of Systems Review of systems is confined to history of present illness. Past Medical History Past Medical History: Pneumonia Additional Past Medical History / Comment(s): Gestational diabetes. COVID History of Any Multi-Drug Resistant Organisms: None Reported Past Surgical History: No Surgical Hx Reported Additional Past Surgical History / Comment(s): [place] Tooth extraction Past Anesthesia/Blood Transfusion Reactions: No Reported Reaction Past Psychological History: No Psychological Hx Reported Smoking Status: Never smoker Past Alcohol Use History: None Reported Past Drug Use History: None Reported - Past Family History Mother Family Medical History: Diabetes Mellitus, Thyroid Disorder Additional Family Medical History / Comment(s): Arthritis, type II DM, MS Sister(s) Family Medical History: Thyroid Disorder Medications and Allergies Home Medications Medication Instructions Recorded Confirmed Type Pnv No.95/Ferrous Fum/Folic AC 1 tab PO DAILY 07/31/20 05/03/23 History [ Multivitamin Tablet] Allergies Allergy/AdvReac Type Severity Reaction Status Date / Time No Known Allergies Allergy Verified 05/03/23 02:19 Exam Vital Signs Temp Pulse Resp BP Pulse Ox 05/03/23 03:08 96.6 F L 81 16 117/72 96 Intake and Output 05/02/23 05/02/23 05/03/23 14:59 22:59 06:59 Other: Weight 117.934 kg In general, this is a well-developed, well-nourished, mild to moderately obese white female in no acute distress. Her heart has a regular rhythm and rate without murmur. Her lungs clear to auscultation bilaterally in all perea. Her abdomen is gravid, nondistended, has normal active bowel sounds, soft, nontender, and without any palpable masses aside from uterine fundus. Her extremities are without any cyanosis, clubbing, or edema and are nontender to palpation bilaterally. Digital cervical examination performed by the nursing staff demonstrates her cervix to be approximately 1-2 cm dilated, 50% effaced, the vertex in presentation at -3 station. Thick meconium-stained fluid is documented and noted. Results Abnormal Lab Results - Last 24 Hours (Table) 05/03/23 Range/Units 02:12 POC Glucose (mg/dL) 121 H (70-110) mg/dL Assessment and Plan (1) Thick meconium stained amniotic fluid Current Visit: Yes Status: Acute Code(s): P96.83 - MECONIUM STAINING SNOMED Code(s): 795815736 (2) Group B streptococcal infection in Current Visit: Yes Status: Acute Code(s): O98.819 - OTH MATERNAL INFEC/PARASTC DISEASES COMP PREG, UNSP TRI; B95.1 - STREPTOCOCCUS, GROUP B, CAUSING DISEASES CLASSD [id number] SNOMED Code(s): 727201270 (3) Post-dates Current Visit: Yes Status: Acute Code(s): O48.0 - POST-TERM SNOMED Code(s): 10091615 Plan: The patient is admitted for management of labor. She has declined intervention as much as possible. An IV has been placed for access through which antibiotic prophylaxis will be run with the patient will prefer to have no IV fluids between doses. She will have close maternal and surveillance and expectant management will be practiced. She is a good candidate for IV or epidural analgesia if she so chooses.
--- NOTE | 2023-05-03 07:02 | P.OP ---
Date of Procedure: 05/03/23 Preoperative Diagnosis: #1. 40 and one sevenths weeks, labor #2. Thick meconium-stained fluid #3. Presumptive gestational diabetes #4. Nonreassuring status in labor Postoperative Diagnosis: Same Procedure(s) Performed: #1. Urgent primary low-transverse section Anesthesia: JEAN Surgeon: Jacob Wray Office Nurse Practitioner #1: Cassie Dee Estimated Blood Loss (ml): 600 IV fluids (ml): 600 Urine output (ml): 300 Pathology: other (Placenta) Condition: stable Disposition: floor Operative Findings: Preoperatively, I was called at home with report of heart tones in the 60s to 100s with no return and summoned to the hospital. Anesthesia was called at the same time to prepare for possible urgent section. I arrived at the hospital approximately 8-10 minutes later at which time anesthesia was still not present. The heart tones remained in the 60s to 100s with occasional recovery into the 110s for 30-60 seconds. The decision was made to proceed with emergent section. The patient was taken to the operating room where after induction of general endotracheal anesthesia, she was delivered in a very rapid fashion of a viable 7 lbs. 4 oz. baby boy with Apgars of 8 at 1 minute and 9 at 5 minutes in the occiput posterior position. There was no evidence of a nuchal cord nor of placental abruption and no obvious explanation for the category 3 heart tones. The nursery technician was also present shortly after delivery but minimal resuscitation was needed given the baby's relatively immediate vigor. The placenta was delivered manually, intact, and grossly normal although it was clearly very meconium-stained. There was a grossly normal to vessel cord though it was relatively small and/or thin in nature. The uterus was relatively large and somewhat heart-shaped but otherwise normal. The tubes and ovaries were normal bilaterally. Description of Procedure: Once in the operating room, the patient was prepped and draped in the usual fashion. General endotracheal anesthesia was administered by the nurse director card. A Pfannenstiel incision was made and rapidly extended into the abdominal cavity without difficulty. The bladder peritoneum was left intact. A 2 cm incision was made in the transverse plane of the lower uterine segment to enter the uterus at which time the lower uterine segment was noted to be very thick. Thick meconium-stained fluid was confirmed. The incision was extended in both directions bluntly. The head was encountered within the incision and ultimately delivered up and through the incision. The was immediately delivered onto the field where the cord was doubly clamped, cut, and the passed for resuscitative measures with weight and Apgars as noted above. A segment of cord was doubly clamped, cut, and set aside for cord gases to be performed. The placenta was delivered manually and intact as noted above. The moderately enlarged uterus was exteriorized and the interior cavity swept of any remaining placental or membranous fragments of which there are fair amount of membranous fragments. Once clear, the margins of the uterine incision were grasped with Mejia clamps and the uterus closed in 2 layers. The first layer was a running locking stitch of 0 chromic catgut from margin to margin followed by a running imbricating stitch of 0 chromic catgut from margin to margin. Hemostasis appeared to be excellent. The posterior cul-de-sac was suctioned with a guard followed by a clean laparotomy sponge. The uterus was replaced within the abdominal cavity and the gutters swept of any remaining blood, fluid, or clot. The uterine incision was reexamined and found to be hemostatic. The parietal peritoneum was loosely reapproximated in the layer of muscles made hemostatic with the Bovie. The fascia was closed with a single running stitch of 0 Vicryl proceeding from margin to margin. The subcutaneous tissues were examined after irrigation and made hemostatic with the Bovie. There were then reapproximated with a running stitch of 30 plain catgut. The skin was reapproximated with a running subcuticular stitch of 4-0 Vicryl from margin to margin. This was followed by half-inch Steri-Strips placed with Mastisol. Estimated blood loss for the case was approximate 600 mL. There were no complications aside from the urgent/emergent nature of the case for category 3 heart rate tracing. All sponge, instrument, needle counts were correct. The patient tolerated the procedure well and proceeded to the recovery room in stable condition. Both mother and infant are resting comfortably in recovery of the is currently being observed in the special care nursery secondary to the urgent/emergent nature of the delivery.
[2023-05-03 08:40] LABS: Anisocytosis Slight; Basophils % (A) 0 %; Eosinophils # (A) 0.2 k/uL (0-0.7); Eosinophils % (A) 2 %; HCT 33.7 % (34.0-46.0); HGB 10.5 gm/dL (11.4-16.0); Hypochromasia Slight; Lymphocytes # (A) 2.3 k/uL (1.0-4.8); Lymphocytes % (A) 18 %; MCH 25.9 pg (25.0-35.0); MCHC 31.3 g/dL (31.0-37.0); Mean Platelet Volume 10.3; Monocytes # (A) 0.6 k/uL (0-1.0); Monocytes % (A) 5 %; Neutrophils # (A) 9.1 k/uL (1.3-7.7); Neutrophils % (A) 74 %; Platelet Count 232 k/uL (150-450); RBC 4.05 m/uL (3.80-5.40); RDW 16.2 % (11.5-15.5); WBC 12.5 k/uL (3.8-10.6)
[2023-05-03] MEDS: PENICILLIN G POTASSIUM 2,500,000 UNIT in DEXTROSE 5% IN WATER 100 ML IVPB SCH ×8 (09:42→19:36)
[2023-05-03] MEDS: ACETAMINOPHEN TAB 500 MG TAB PO SCH ×3 (10:10→21:39)
[2023-05-03] MEDS: SENNOSIDES-DOCUSATE SODIUM 1 EACH TAB PO SCH ×2 (10:10→19:50)
[2023-05-03] MEDS: IBUPROFEN 600 MG TAB PO SCH ×2 (12:43→18:49)
[2023-05-04] MEDS: IBUPROFEN 600 MG TAB PO SCH ×4 (00:27→22:33)
[2023-05-04] MEDS: LACTATED RINGERS 1,000 ML IV SCH ×2 (03:39→14:15)
[2023-05-04] MEDS: ACETAMINOPHEN TAB 500 MG TAB PO SCH ×3 (03:42→20:05)
[2023-05-04 06:00] LABS: Anisocytosis Slight; Basophils % (A) 0 %; Eosinophils # (A) 0.3 k/uL (0-0.7); Eosinophils % (A) 2 %; HCT 30.5 % (34.0-46.0); HGB 9.6 gm/dL (11.4-16.0); Hypochromasia Slight; Lymphocytes # (A) 1.8 k/uL (1.0-4.8); Lymphocytes % (A) 15 %; MCHC 31.6 g/dL (31.0-37.0); MCV 82.3 fL (80.0-100.0); Mean Platelet Volume 9.2; Monocytes # (A) 0.6 k/uL (0-1.0); Monocytes % (A) 5 %; Neutrophils # (A) 8.9 k/uL (1.3-7.7); Neutrophils % (A) 75 %; Platelet Count 205 k/uL (150-450); RDW 16.1 % (11.5-15.5); WBC 11.9 k/uL (3.8-10.6)
[2023-05-04 07:48] VITALS: RESP 16
--- NOTE | 2023-05-04 08:51 | P.PNOBGPC ---
Subjective - Subjective Patient reports: Reports appetite normal, Reports voiding normally, Reports pain well controlled, Reports ambulating normally : doing well Objective - Vital Signs Latest vital signs: Vital Signs Temp Pulse Resp BP Pulse Ox 05/04/23 07:47 98.5 F 65 16 111/73 98 05/04/23 04:00 97.6 F 67 18 101/66 95 05/04/23 00:00 97.8 F 65 16 109/72 94 L 05/03/23 20:00 97.7 F 66 18 104/66 96 05/03/23 19:36 96 05/03/23 16:00 97.8 F 68 16 99/63 96 05/03/23 11:56 97.8 F 57 L 16 105/68 96 Intake and Output 05/03/23 05/04/23 05/04/23 22:59 06:59 14:59 Intake Total 540 Output Total 3000 550 Balance -3000 -10 Intake: Oral 540 Output: Urine 3000 550 Uretheral (Torres) 1500 Other: # Voids 1 2 - Exam Extremities: Present: normal Abdomen: Present: normal appearance, soft. Absent: distention, tenderness Incision: Present: normal, dry, intact Uterus: Present: normal, firm (The uterine fundus is tonic and appropriate only tender just below the umbilicus.) - Labs Labs: Abnormal Lab Results - Last 24 Hours (Table) 05/04/23 Range/Units 05:41 WBC 11.9 H (3.8-10.6) k/uL RBC 3.70 L (3.80-5.40) m/uL Hgb 9.6 L (11.4-16.0) gm/dL Hct 30.5 L (34.0-46.0) % RDW 16.1 H (11.5-15.5) % Neutrophils # 8.9 H (1.3-7.7) k/uL Assessment and Plan (1) Thick meconium stained amniotic fluid Current Visit: Yes Status: Acute Code(s): P96.83 - MECONIUM STAINING SNOMED Code(s): 428821212 (2) Group B streptococcal infection in Current Visit: Yes Status: Acute Code(s): O98.819 - OTH MATERNAL INFEC/PARASTC DISEASES COMP PREG, UNSP TRI; B95.1 - STREPTOCOCCUS, GROUP B, CAUSING DISEASES CLASSD [id number] SNOMED Code(s): 499826460 (3) Post-dates Current Visit: Yes Status: Acute Code(s): O48.0 - POST-TERM SNOMED Code(s): 65033824 (4) Non-reassuring electronic monitoring tracing Current Visit: Yes Status: Acute Code(s): O36.8390 - MATERN CARE FOR ABNLT FETL HRT RATE OR RHYM, UNSP TRI, UNSP SNOMED Code(s): 025510767 (5) S/P section Current Visit: Yes Status: Acute Code(s): Z98.891 - HISTORY OF UTERINE SCAR FROM PREVIOUS SURGERY SNOMED Code(s): 131416789 Plan: Continue routine and postoperative care. We will discontinue the WASTE ELIMINATION and likely either saline lock or remove the IV. She is tolerating oral pain medications at this time. I have strongly encouraged her to ambulate in the hallways routinely. Assuming no complications, I would anticipate discharge home tomorrow.
[2023-05-04] MEDS: SENNOSIDES-DOCUSATE SODIUM 1 EACH TAB PO SCH ×2 (09:26→20:01)
[2023-05-05] MEDS: ACETAMINOPHEN TAB 500 MG TAB PO SCH ×2 (00:49→05:50)
[2023-05-05] MEDS: IBUPROFEN 600 MG TAB PO SCH (05:50)
[2023-05-05 08:28] VITALS: BP 124/72; PULSE 61; TEMP 97.7
[2023-05-05] MEDS: SENNOSIDES-DOCUSATE SODIUM 1 EACH TAB PO SCH (08:35)
--- NOTE | 2023-05-05 09:38 | P.PNOBGPC ---
Subjective - Subjective Principal diagnosis: s/p primary section Interval history: The patient is doing well this morning and had no acute events overnight. She has no complaints this morning. She reports minimal lochia, passing flatus, voiding without difficulty, ambulating, and eating/drinking without nausea or vomiting. She is her without difficulty. She denies chest pain, shortness of breathing, fevers, or chills overnight. She denies pain or swelling in the legs. Patient reports: Reports appetite normal, Reports voiding normally, Reports pain well controlled, Reports ambulating normally [place]: doing well, nursing well Objective - Vital Signs Latest vital signs: Vital Signs Temp Pulse Resp BP Pulse Ox 05/05/23 08:00 97.7 F 61 16 124/72 05/05/23 00:00 97.9 F 82 16 99/59 96 05/04/23 16:00 97.9 F 101 H 16 135/77 98 Intake and Output 05/04/23 05/05/23 05/05/23 22:59 06:59 14:59 Other: # Voids 2 2 1 - Exam Extremities: Present: normal Abdomen: Present: normal appearance, soft Incision: Present: normal, dry, intact Uterus: Present: normal, firm Assessment and Plan Assessment: 37 year old now POD#2 s/p 1 LTCS 2/2 Cat III heart tones Plan: Will discharge home today. Patient doing well and meeting all postoperative milestones.
--- NOTE | 2023-05-05 09:41 | P.DS ---
Providers Date of admission: 05/03/23 01:55 Expected date of discharge: 05/05/23 Attending physician: Jacob Wray Primary care physician: Stated None Hospital Course: 37 year old now POD#2 s/p 1 LTCS 2/2 Cat III heart tones. The patient is doing well this morning and had no acute events overnight. She has no complaints this morning. She reports minimal lochia, passing flatus, voiding without difficulty, ambulating, and eating/drinking without nausea or vomiting. Infant doing well at bedside, s/p circumcision, well. She denies chest pain, shortness of breathing, fevers, or chills overnight. She denies pain or swelling in the legs. Postoperative restrictions are reviewed with the patient including pelvic rest for 6 weeks, no lifting heavier than 15 pounds for 6 weeks. The patient is encouraged to call the office if she experiences any heavy bleeding, foul-smelling discharge, breast complaints, or any if she has any other concerns. She will follow up in the office with Dr. Wray in 2 weeks for postoperative exam. All questions are answered. Assessment: 37 year old now POD#2 s/p 1 LTCS 2/2 Cat III heart tones Patient Condition at Discharge: Good Plan - Discharge Summary Discharge Rx Participant: No New Discharge Prescriptions: No Action Pnv No.95/Ferrous Fum/Folic AC [ Multivitamin Tablet] 1 tab PO DAILY Discharge Medication List Pnv No.95/Ferrous Fum/Folic AC [ Multivitamin Tablet] 1 tab PO DAILY 07/31/20 [History] Follow up Appointment(s)/Referral(s): Jacob Wray MD [STAFF PHYSICIAN] - 2 Weeks (post-operative exam) Patient Instructions/Handouts: (DC) Activity/Diet/Wound Care/Special Instructions: No lifting heavier than 15 pounds for 6 weeks. Pelvic rest for 6 weeks. Discharge Disposition: HOME SELF-CARE
== END 2023-05-05 12:15 | disposition home or self-care (01) | DRG 788 ==
LOC: 4FBP 01:55
PROVIDERS: ADMIT Obstetrics & Gynecology; ATTEND Obstetrics & Gynecology
PROC: 10D00Z1 Extraction of Products of Conception, Low, Open Approach (ICD-10-PCS; principal; 2023-05-03 06:22)
DX: O48.0 Post-term pregnancy (principal); O77.0 Labor and delivery complicated by meconium in amniotic fluid; O99.824 Streptococcus B carrier state complicating childbirth; O24.429 Gestational diabetes mellitus in childbirth, unspecified control; O32.8XX0 Maternal care for other malpresentation of fetus, not applicable or unspecified; O76 Abnormality in fetal heart rate and rhythm complicating labor and delivery; O69.89X0 Labor and delivery complicated by other cord complications, not applicable or unspecified; Z37.0 Single live birth; Z83.3 Family history of diabetes mellitus; Z3A.40 40 weeks gestation of pregnancy
CPT/HCPCS: 59025; 85025; 86850; 86900; 86901; 99213